=== PATIENT | female | born 1995 | race Caucasian/White ===

== ENCOUNTER 2018-12-07 16:59 | Emergency (ER) | payer OTHER ==
[2018-12-07 17:08] VITALS: TEMP 98.3
[2018-12-07] MEDS ORDERED: METOCLOPRAMIDE 5 MG/ML 2 ML VIAL IVP STA (17:34)
[2018-12-07] MEDS ORDERED: SODIUM CHLORIDE 0.9% 2,000 ML IV STA (17:34)
[2018-12-07 18:11] LABS: Basophils % (A) 0 %; Eosinophils # (A) 0.2 k/uL (0-0.7); Eosinophils % (A) 3 %; HGB 13.4 gm/dL (11.4-16.0); Lymphocytes # (A) 1.5 k/uL (1.0-4.8); Lymphocytes % (A) 24 %; MCHC 35.1 g/dL (31.0-37.0); MCV 82.6 fL (80.0-100.0); Mean Platelet Volume 7.5; Monocytes # (A) 0.4 k/uL (0-1.0); Monocytes % (A) 6 %; Neutrophils # (A) 3.9 k/uL (1.3-7.7); Neutrophils % (A) 64 %; Platelet Count 181 k/uL (150-450); RDW 12.7 % (11.5-15.5); WBC 6.1 k/uL (3.8-10.6)
[2018-12-07 18:14] LABS: ALT 46 U/L (9-52); AST 32 U/L (14-36); Albumin 4.2 g/dL (3.5-5.0); Alkaline Phosphatase 71 U/L (38-126); Amylase 100 U/L (30-110); Anion Gap 12 mmol/L; Appearance,Urine Cloudy (Clear); Bacteria,Urine Rare /hpf; Bilirubin,Urine Negative (Negative); Blood Urea Nitrogen 10 mg/dL (7-17); Blood,Urine Negative (Negative); Carbon Dioxide 25 mmol/L (22-30); Chloride 97 mmol/L (98-107); Color,Urine Yellow; Glucose 84 mg/dL (74-99); Glucose,Urine (UA) Negative (Negative); Ketones,Urine 4+ (Negative); Leukocyte Esterase,Urine Large (Negative); Lipase 100 U/L (23-300); Mucus,Urine Few /hpf; Nitrite,Urine Negative (Negative); Potassium 3.4 mmol/L (3.5-5.1); Protein,Urine 1+ (Negative); RBC,Urine 21 /hpf (0-5); Sodium 134 mmol/L (137-145); Specific Gravity,Urine 1.031 (1.001-1.035); Squamous Epithelial Cell,Urine 24 /hpf (0-4); Total Bilirubin 0.7 mg/dL (0.2-1.3); Total Protein 7.1 g/dL (6.3-8.2); WBC,Urine 68 /hpf (0-5)
[2018-12-07] MEDS ORDERED: ONDANSETRON 4 MG/2 ML VIAL IVP STA (18:35)
--- NOTE | 2018-12-07 19:56 | ED ---
General Adult HPI - General Chief complaint: Nausea/Vomiting/Diarrhea Stated complaint: dehydration Time Seen by Provider: 12/07/18 17:15 Source: patient, RN notes reviewed Mode of arrival: ambulatory Limitations: no limitations - History of Present Illness Initial comments: Patient is 12 weeks sent over from her primary care provider for a chi ef complaint of nausea and vomiting x 4 days. Patient states that she has been very nauseous and vomiting throughout her . States that this did start to feel better about a week ago. However on Tuesday she started to have some congestion and the nausea returned. States she has vomited multiple times per day, able to keep some water down. Patient is taking Reglan at home. Patient denies fevers or chills. Patient denies any abdominal pain. Patient denies any vaginal bleeding.Patient has no other complaints at this time including shortness of breath, chest pain, abdominal pain, nausea or vomiting, headache, or visual changes. - Related Data Home Medications Medication Instructions Recorded Confirmed diphenhydrAMINE HCL [Benadryl] 25 mg PO HS PRN 12/07/18 12/07/18 Allergies Allergy/AdvReac Type Severity Reaction Status Date / Time Tetanus Vaccines and Toxoid Allergy Swelling Verified 12/07/18 17:23 Review of Systems ROS Statement: Those systems with pertinent positive or pertinent negative responses have been documented in the HPI. ROS Other: All systems not noted in ROS Statement are negative. Past Medical History Past Medical History: No Reported History History of Any Multi-Drug Resistant Organisms: None Reported Additional Past Surgical History / Comment(s): breast biopsy Past Psychological History: ADD/ADHD, Anxiety, Bipolar, Depression, PTSD Smoking Status: Never smoker Past Alcohol Use History: None Reported Past Drug Use History: None Reported General Exam Limitations: no limitations General appearance: alert, in no apparent distress Head exam: Present: atraumatic, normocephalic, normal inspection Eye exam: Present: normal appearance, PERRL, EOMI. Absent: scleral icterus, conjunctival injection, periorbital swelling ENT exam: Present: normal exam, mucous membranes moist Neck exam: Present: normal inspection, full ROM. Absent: tenderness, meningismu s, lymphadenopathy Respiratory exam: Present: normal lung sounds bilaterally. Absent: respiratory distress, wheezes, rales, rhonchi, stridor Cardiovascular Exam: Present: regular rate, normal rhythm, normal heart sounds. Absent: systolic murmur, diastolic murmur, rubs, gallop, clicks GI/Abdominal exam: Present: soft, normal bowel sounds. Absent: distended, tenderness, guarding, rebound, rigid Neurological exam: Present: alert, oriented X3, CN II-XII intact Psychiatric exam: Present: normal affect, normal mood Course Vital Signs 12/07/18 17:04 Temperature 98.3 F Pulse Rate 101 H Respiratory 20 Rate Blood Pressure 107/76 O2 Sat by Pulse 97 Oximetry Medical Decision Making - Medical Decision Making 23-year-old female presents to the emergency department for a chief complaint of nausea and vomiting 4 days. Patient is 12 weeks . Patient has had issues with vomiting throughout her . CBC CMP unremarkable. Ketones are 4+. Patient was given 2 L of fluids. Patient does have a large leuk esterase of 68 white cells however there are 24 squamous cells. Because of this urine will be cultured and patient will follow up on these results. Patient given antiemetics, aware of risks associated with these. Patient is doing much better at this time. Patient is eating a turkey sandwich and tolerating by mouth intake. Patient will follow-up with primary care and return here if she has any worsening symptoms. - Lab Data Result diagrams: 12/07/18 18:00 12/07/18 18:00 Lab Results 12/07/18 12/07/18 12/07/18 Range/Units 18:00 18:00 18:00 WBC 6.1 (3.8-10.6) k/uL RBC 4.60 (3.80-5.40) m/uL Hgb 13.4 (11.4-16.0) gm/dL Hct 38.0 (34.0-46.0) % MCV 82.6 (80.0-100.0) fL MCH 29.0 (25.0-35.0) pg MCHC 35.1 (31.0-37.0) g/dL RDW 12.7 (11.5-15.5) % Plt Count 181 (150-450) k/uL Neutrophils % 64 % Lymphocytes % 24 % Monocytes % 6 % Eosinophils % 3 % Basophils % 0 % Neutrophils # 3.9 (1.3-7.7) k/uL Lymphocytes # 1.5 (1.0-4.8) k/uL Monocytes # 0.4 (0-1.0) k/uL Eosinophils # 0.2 (0-0.7) k/uL Basophils # 0.0 (0-0.2) k/uL Sodium 134 L (137-145) mmol/L Potassium 3.4 L (3.5-5.1) mmol/L Chloride 97 L (98-107) mmol/L Carbon Dioxide 25 (22-30) mmol/L Anion Gap 12 mmol/L BUN 10 (7-17) mg/dL Creatinine 0.42 L (0.52-1.04) mg/dL Est GFR (CKD-EPI)AfAm >90 (>60 ml/min/1.73 sqM) Est GFR (CKD-EPI)NonAf >90 (>60 ml/min/1.73 sqM) Glucose 84 (74-99) mg/dL Calcium 9.0 (8.4-10.2) mg/dL Total Bilirubin 0.7 (0.2-1.3) mg/dL AST 32 (14-36) U/L ALT 46 (9-52) U/L Alkaline Phosphatase 71 (38-126) U/L Total Protein 7.1 (6.3-8.2) g/dL Albumin 4.2 (3.5-5.0) g/dL Amylase 100 (30-110) U/L Lipase 100 (23-300) U/L Urine Color Yellow Urine Appearance Cloudy H (Clear) Urine pH 6.0 (5.0-8.0) Ur Specific [place] 1.031 (1.001-1.035) Urine Protein 1+ H (Negative) Urine Glucose (UA) Negative (Negative) Urine Ketones 4+ H (Negative) Urine Blood Negative (Negative) Urine Nitrite Negative (Negative) Urine Bilirubin Negative (Negative) Urine Urobilinogen 4.0 (<2.0) mg/dL Ur Leukocyte Esterase Large H (Negative) Urine RBC 21 H (0-5) /hpf Urine WBC 68 H (0-5) /hpf Ur Squamous Epith Cells 24 H (0-4) /hpf Urine Bacteria Rare H (None) /hpf Urine Mucus Few H (None) /hpf Disposition Clinical Impression: Hyperemesis gravidarum Disposition: HOME SELF-CARE Condition: Good Instructions (If sedation given, give patient instructions): Nausea and Vomiting in (ED), Hyperemesis Gravidarum (ED) Additional Instructions: Please follow up with primary care in 1-2 days. Please return here to the emergency department if you have any worsening symptoms. Is patient prescribed a controlled substance at d/c from ED?: No Referrals: Amirah Carrillo MD [Primary Care Provider] - 1-2 days Time of Disposition: 19:55
[2018-12-07 20:46] VITALS: BP 116/80; PULSE 73; RESP 16
== END 2018-12-07 20:46 | disposition home or self-care (01) ==
LOC: EC 16:59
DX: O21.0 Mild hyperemesis gravidarum (principal); O99.89 Other specified diseases and conditions complicating pregnancy, childbirth and the puerperium; R09.89 Other specified symptoms and signs involving the circulatory and respiratory systems; Z3A.12 12 weeks gestation of pregnancy; Z88.7 Allergy status to serum and vaccine
CPT/HCPCS: 99284; 96374; 96375; 36415; 80053; 82150; 83690; 85025; 81001; 87086; 96361 ×2; J2765; J2405

== ENCOUNTER 2018-12-11 22:21 | Emergency (ER) | payer OTHER ==
[2018-12-11] MEDS ORDERED: SODIUM CHLORIDE 0.9% 2,000 ML IV STA (22:54)
[2018-12-11] MEDS ORDERED: METOCLOPRAMIDE 5 MG/ML 2 ML VIAL IVP STA (22:55)
[2018-12-11] MEDS ORDERED: diphenhydrAMINE 50 MG/ML 1 ML VIAL IVP STA (22:56)
--- NOTE | 2018-12-11 22:59 | ED ---
General Adult HPI - General Chief complaint: Nausea/Vomiting/Diarrhea Stated complaint: 13 Weeks Dehydration Nausea Time Seen by Provider: 12/11/18 22:46 Source: patient, RN notes reviewed Mode of arrival: ambulatory Limitations: no limitations - History of Present Illness Initial comments: 23-year-old female currently 13 weeks presents to the emergency department for a chief complaint of nausea vomiting x 1 day. Patient states she has struggled with nausea and vomiting throughout her . States that this tends to come and go. Today she was seen here 4 days ago and had a complete resolution of symptoms for 3 days however last night started to have this nausea and vomiting again. Patient states she has not been able to keep an y food down. States she is concerned she is going to get dehydrated again so presented to the emergency department. Patient denies any abdominal pain or cramping. Patient denies any vaginal bleeding. Patient does have a confirmed IUP. Patient has no other complaints at this time including shortness of breath, chest pain, abdominal pain, headache, or visual changes. - Related Data Home Medications Medication Instructions Recorded Confirmed Metoclopramide [Reglan] 10 mg PO QID PRN 12/11/18 12/11/18 Ranitidine HCl 150 mg PO DAILY 12/11/18 12/11/18 Previous Rx's Medication Instructions Recorded Cephalexin [Keflex] 500 mg PO Q6HR 7 Days cap 12/12/18 Allergies Allergy/AdvReac Type Severity Reaction Status Date / Time Tetanus Vaccines and Toxoid Allergy Swelling Verified 12/11/18 22:45 Review of Systems ROS Statement: Those systems with pertinent positive or pertinent negative responses have been documented in the HPI. ROS Other: All systems not noted in ROS Statement are negative. Past Medical History Past Medical History: No Reported History History of Any Multi-Drug Resistant Organisms: None Reported Additional Past Surgical History / Comment(s): breast biopsy Past Psychological History: ADD/ADHD, Anxiety, Bipolar, Depression, PTSD Smoking Status: Never smoker Past Alcohol Use History: None Reported Past Drug Use History: None Reported General Exam Limitations: no limitations General appearance: alert, in no apparent distress (She is alert sitting up smiling, no distress,) Head exam: Present: atraumatic, normocephalic, normal inspection Eye exam: Present: normal appearance, PERRL, EOMI. Absent: scleral icterus, conjunctival injection, periorbital swelling ENT exam: Present: normal exam, mucous membranes moist Neck exam: Present: normal inspection, full ROM. Absent: tenderness, meningismus, lymphadenopathy Respiratory exam: Present: normal lung sounds bilaterally. Absent: respiratory distress, wheezes, rales, rhonchi, stridor Cardiovascular Exam: Present: regular rate, normal rhythm, normal heart sounds. Absent: systolic murmur, diastolic murmur, rubs, gallop, clicks GI/Abdominal exam: Present: soft, normal bowel sounds. Absent: distended, tenderness, guarding, rebound, rigid Neurological exam: Present: alert, oriented X3, CN II-XII intact Psychiatric exam: Present: normal affect, normal mood Course Vital Signs 12/11/18 12/11/18 22:35 23:32 Temperature 98.0 F 98.1 F Pulse Rate 96 91 Respiratory 20 16 Rate Blood Pressure 106/70 123/79 O2 Sat by Pulse 97 97 Oximetry Medical Decision Making - Medical Decision Making 23-year-old female currently 13 weeks presents for nausea and vomiting times one day. Patient states this comes and goes throughout her . States she has not been able to keep anything down today. CBC and CMP are unremarkable. Patient was given 2 L of fluids here in the emergency department. Patient was also given Reglan IV. States she is doing much better at this time. Patient is drinking burners and eating crackers here without difficulty. Urine does show large leukesterase with greater than 182 white blood cells and many bacteria. Patient had a negative culture 4 days ago however given increase in white blood cells she will be started on Keflex. Culture will be repeated. Gonorrhea and Chlamydia also added however patient denies vaginal discharge or abdominal pain. Patient will follow-up with [facility]ANCE [facility]NAGER in one to 2 days. She will return here visiting any worsening symptoms. - Lab Data Result diagrams: 12/11/18 23:20 12/11/18 23:20 Lab Results 12/11/18 12/11/18 12/11/18 Range/Units 23:16 23:20 23:20 WBC 5.0 (3.8-10.6) k/uL RBC 4.34 (3.80-5.40) m/uL Hgb 12.6 (11.4-16.0) gm/dL Hct 36.0 (34.0-46.0) % MCV 83.0 (80.0-100.0) fL MCH 29.1 (25.0-35.0) pg MCHC 35.1 (31.0-37.0) g/dL RDW 13.4 (11.5-15.5) % Plt Count 176 (150-450) k/uL Neutrophils % 62 % Lymphocytes % 31 % Monocytes % 3 % Eosinophils % 2 % Basophils % 0 % Neutrophils # 3.1 (1.3-7.7) k/uL Lymphocytes # 1.5 (1.0-4.8) k/uL Monocytes # 0.2 (0-1.0) k/uL Eosinophils # 0.1 (0-0.7) k/uL Basophils # 0.0 (0-0.2) k/uL Sodium 136 L (137-145) mmol/L Potassium 3.9 (3.5-5.1) mmol/L Chloride 107 (98-107) mmol/L Carbon Dioxide 22 (22-30) mmol/L Anion Gap 7 mmol/L BUN 5 L (7-17) mg/dL Creatinine 0.36 L (0.52-1.04) mg/dL Est GFR (CKD-EPI)AfAm >90 (>60 ml/min/1.73 sqM) Est GFR (CKD-EPI)NonAf >90 (>60 ml/min/1.73 sqM) Glucose 86 (74-99) mg/dL Calcium 8.7 (8.4-10.2) mg/dL Total Bilirubin 0.5 (0.2-1.3) mg/dL AST 20 (14-36) U/L ALT 32 (9-52) U/L Alkaline Phosphatase 59 (38-126) U/L Total Protein 6.1 L (6.3-8.2) g/dL Albumin 3.4 L (3.5-5.0) g/dL Amylase 80 (30-110) U/L Lipase 133 (23-300) U/L Urine Color Yellow Urine Appearance Turbid H (Clear) Urine pH 8.5 H (5.0-8.0) Ur Specific [place] 1.020 (1.001-1.035) Urine Protein 1+ H (Negative) Urine Glucose (UA) Negative (Negative) Urine Ketones 2+ H (Negative) Urine Blood Negative (Negative) Urine Nitrite Negative (Negative) Urine Bilirubin Negative (Negative) Urine Urobilinogen <2.0 (<2.0) mg/dL Ur Leukocyte Esterase Large H (Negative) Urine RBC 6 H (0-5) /hpf Urine WBC >182 H (0-5) /hpf Urine WBC Clumps Few H (None) /hpf Ur Squamous Epith Cells 14 H (0-4) /hpf Urine Bacteria Many H (None) /hpf Urine Mucus Many H (None) /hpf Disposition Clinical Impression: Nausea and vomiting in , Urinary tract infection Disposition: HOME SELF-CARE Condition: Good Instructions (If sedation given, give patient instructions): Nausea and Vomiting in (ED) Additional Instructions: Please take antibiotic as directed. Please follow up with [facility] in one to 2 days. If you're having any worsening symptoms return to the emergency department. Prescriptions: Cephalexin [Keflex] 500 mg PO Q6HR 7 Days cap Is patient prescribed a controlled substance at d/c from ED?: No Referrals: Amirah Carrillo MD [Primary Care Provider] - 1-2 days Time of Disposition: 00:10
[2018-12-11 23:36] LABS: Basophils % (A) 0 %; Eosinophils # (A) 0.1 k/uL (0-0.7); Eosinophils % (A) 2 %; HGB 12.6 gm/dL (11.4-16.0); Lymphocytes # (A) 1.5 k/uL (1.0-4.8); Lymphocytes % (A) 31 %; MCH 29.1 pg (25.0-35.0); MCHC 35.1 g/dL (31.0-37.0); Mean Platelet Volume 7.8; Monocytes # (A) 0.2 k/uL (0-1.0); Monocytes % (A) 3 %; Neutrophils # (A) 3.1 k/uL (1.3-7.7); Neutrophils % (A) 62 %; Platelet Count 176 k/uL (150-450); RBC 4.34 m/uL (3.80-5.40); RDW 13.4 % (11.5-15.5)
[2018-12-11 23:38] LABS: Appearance,Urine Turbid (Clear); Bacteria,Urine Many /hpf; Bilirubin,Urine Negative (Negative); Blood,Urine Negative (Negative); Color,Urine Yellow; Glucose,Urine (UA) Negative (Negative); Ketones,Urine 2+ (Negative); Leukocyte Esterase,Urine Large (Negative); Mucus,Urine Many /hpf; Nitrite,Urine Negative (Negative); PH, Urine 8.5 (5.0-8.0); Protein,Urine 1+ (Negative); RBC,Urine 6 /hpf (0-5); Squamous Epithelial Cell,Urine 14 /hpf (0-4); Urobilinogen,Urine <2.0 mg/dL (<2.0); WBC,Urine >182 /hpf (0-5)
[2018-12-11 23:44] LABS: ALT 32 U/L (9-52); AST 20 U/L (14-36); Albumin 3.4 g/dL (3.5-5.0); Alkaline Phosphatase 59 U/L (38-126); Amylase 80 U/L (30-110); Anion Gap 7 mmol/L; Blood Urea Nitrogen 5 mg/dL (7-17); Calcium 8.7 mg/dL (8.4-10.2); Carbon Dioxide 22 mmol/L (22-30); Chloride 107 mmol/L (98-107); Glucose 86 mg/dL (74-99); Lipase 133 U/L (23-300); Potassium 3.9 mmol/L (3.5-5.1); Sodium 136 mmol/L (137-145); Total Bilirubin 0.5 mg/dL (0.2-1.3); Total Protein 6.1 g/dL (6.3-8.2)
[2018-12-12] MEDS ORDERED: CEPHALEXIN 500MG STARTER PACK 4 CAP BTL PO STA (00:11)
[2018-12-12 00:36] VITALS: BP 123/84; PULSE 69; RESP 18; TEMP 98
== END 2018-12-12 00:35 | disposition home or self-care (01) ==
LOC: EC 22:21
DX: O23.41 Unspecified infection of urinary tract in pregnancy, first trimester (principal); Z3A.13 13 weeks gestation of pregnancy; O21.9 Vomiting of pregnancy, unspecified; Z79.899 Other long term (current) drug therapy; Z88.7 Allergy status to serum and vaccine
CPT/HCPCS: 36415; 80053; 82150; 83690; 85025; 81001; 99284; 96374; 96375; 96361; J1200; J2765; 87086; 87491; 87591

== ENCOUNTER 2018-12-13 07:13 | Emergency (ER) | payer OTHER ==
[2018-12-13 07:25] VITALS: RESP 18
[2018-12-13] MEDS ORDERED: METOCLOPRAMIDE 5 MG/ML 2 ML VIAL IVP STA (08:01)
[2018-12-13] MEDS ORDERED: SODIUM CHLORIDE 0.9% 2,000 ML IV STA (08:04)
[2018-12-13] MEDS ORDERED: cefTRIAXone IN SWFI 1,000 MG/10 ML SYRINGE IVP STA (08:06)
[2018-12-13 08:16] LABS: Basophils % (A) 0 %; Eosinophils # (A) 0.2 k/uL (0-0.7); Eosinophils % (A) 2 %; HCT 37.3 % (34.0-46.0); Lymphocytes # (A) 1.6 k/uL (1.0-4.8); Lymphocytes % (A) 24 %; MCH 28.7 pg (25.0-35.0); MCHC 34.8 g/dL (31.0-37.0); MCV 82.5 fL (80.0-100.0); Mean Platelet Volume 7.8; Monocytes # (A) 0.2 k/uL (0-1.0); Monocytes % (A) 3 %; Neutrophils # (A) 4.6 k/uL (1.3-7.7); Neutrophils % (A) 69 %; Platelet Count 197 k/uL (150-450); RBC 4.52 m/uL (3.80-5.40); RDW 13.6 % (11.5-15.5); WBC 6.7 k/uL (3.8-10.6)
[2018-12-13 08:20] LABS: ALT 42 U/L (9-52); AST 27 U/L (14-36); Alkaline Phosphatase 65 U/L (38-126); Anion Gap 10 mmol/L; Blood Urea Nitrogen 7 mg/dL (7-17); Calcium 9.2 mg/dL (8.4-10.2); Carbon Dioxide 22 mmol/L (22-30); Chloride 105 mmol/L (98-107); Glucose 89 mg/dL (74-99); Potassium 3.7 mmol/L (3.5-5.1); Sodium 137 mmol/L (137-145); Total Bilirubin 0.6 mg/dL (0.2-1.3); Total Protein 6.8 g/dL (6.3-8.2)
[2018-12-13 08:41] LABS: Appearance,Urine Cloudy (Clear); Bacteria,Urine Occasional /hpf; Bilirubin,Urine Negative (Negative); Blood,Urine Negative (Negative); Color,Urine Yellow; Glucose,Urine (UA) Negative (Negative); Ketones,Urine 4+ (Negative); Leukocyte Esterase,Urine Trace (Negative); Mucus,Urine Many /hpf; Nitrite,Urine Negative (Negative); Protein,Urine 1+ (Negative); Specific Gravity,Urine 1.027 (1.001-1.035); Squamous Epithelial Cell,Urine 18 /hpf (0-4); WBC,Urine 10 /hpf (0-5)
--- NOTE | 2018-12-13 08:52 | ED ---
General Adult HPI - General Chief complaint: Nausea/Vomiting/Diarrhea Stated complaint: 13 Weeks /Nausea Time Seen by Provider: 12/13/18 07:22 Source: patient Mode of arrival: ambulatory Limitations: no limitations - History of Present Illness Initial comments: Patient is a 23-year-old, 13 week female presented emergency department with a chief complaint of nausea vomiting. Patient states she was here 2 days ago for same issues. Patient states she was given fluids and Reglan and was able to keep down some food but started vomiting again when she got home. Patient's last UA in the emergency department was positive for UTI. She was sent home with Keflex but did not take it due to vomiting. Patient was sent home with Reglan but is unable to keep it down. Patient reports being diagnosed with hyperemesis gravidarum by her online marketing manager who advised her to emergency Department if vomiting persists for over 24 hours. Patient denies fever, abdominal pain, chest tightness or chest palpations. Patient denies any vaginal discharge or dysuria. - Related Data Home Medications Medication Instructions Recorded Confirmed Metoclopramide [Reglan] 10 mg PO QID PRN 12/11/18 12/13/18 Ranitidine HCl 150 mg PO DAILY 12/11/18 12/13/18 diphenhydrAMINE [Benadryl] 25 mg PO HS PRN 12/13/18 12/13/18 Previous Rx's Medication Instructions Recorded Cephalexin [Keflex] 500 mg PO Q6HR 7 Days cap 12/12/18 Metoclopramide [Reglan] 10 mg PO TID PRN #15 tab 12/13/18 Allergies Allergy/AdvReac Type Severity Reaction Status Date / Time Tetanus Vaccines and Toxoid Allergy Swelling Verified 12/13/18 07:44 Review of Systems ROS Statement: Those systems with pertinent positive or pertinent negative responses have been documented in the HPI. ROS Other: All systems not noted in ROS Statement are negative. Past Medical History Past Medical History: No Reported History History of Any Multi-Drug Resistant Organisms: None Reported Additional Past Surgical History / Comment(s): breast biopsy Past Psychological History: ADD/ADHD, Anxiety, Bipolar, Depression, PTSD Smoking Status: Never smoker Past Alcohol Use History: None Reported Past Drug Use History: None Reported General Exam Limitations: no limitations General appearance: alert, in no apparent distress Head exam: Present: atraumatic, normocephalic, normal inspection Eye exam: Present: normal appearance, PERRL, EOMI. Absent: scleral icterus, conjunctival injection ENT exam: Present: normal exam Neck exam: Present: normal inspection Respiratory exam: Present: normal lung sounds bilaterally. Absent: wheezes, rales, rhonchi, stridor Cardiovascular Exam: Present: regular rate, normal rhythm, normal heart sounds GI/Abdominal exam: Present: soft, tenderness (Midline suprapubic), normal bowel sounds. Absent: guarding, rebound, rigid Extremities exam: Present: normal inspection Back exam: Present: normal inspection, full ROM. Absent: tenderness, CVA tenderness (R), CVA tenderness (L), muscle spasm Neurological exam: Present: alert, oriented X3 Psychiatric exam: Present: normal affect, normal mood Skin exam: Present: warm Course Vital Signs 12/13/18 12/13/18 07:22 09:20 Temperature 98.4 F 98.5 F Pulse Rate 95 82 Respiratory 18 18 Rate Blood Pressure 118/85 116/66 O2 Sat by Pulse 96 99 Oximetry Medical Decision Making - Medical Decision Making Patient is a 23-year-old, 13-week0 female presenting to the emergency department for nausea and vomiting. Patient was given 3 L of saline for derehydration. Patient was given 1 g Rocephin for untreated UTI from her previous visit. Patient was given Reglan for nausea. Patient was given Prevacid for heartburn. Patient states that she feels better. Patient advised to follow with her OB, she has an appointment on December 20. Patient advised to return to emergency depar tment if symptoms worsen. Case discussed with the patient. - Lab Data Result diagrams: 12/13/18 07:31 12/13/18 07:31 Lab Results 12/13/18 12/13/18 12/13/18 Range/Units 07:31 07:31 08:15 WBC 6.7 (3.8-10.6) k/uL RBC 4.52 (3.80-5.40) m/uL Hgb 13.0 (11.4-16.0) gm/dL Hct 37.3 (34.0-46.0) % MCV 82.5 (80.0-100.0) fL MCH 28.7 (25.0-35.0) pg MCHC 34.8 (31.0-37.0) g/dL RDW 13.6 (11.5-15.5) % Plt Count 197 (150-450) k/uL Neutrophils % 69 % Lymphocytes % 24 % Monocytes % 3 % Eosinophils % 2 % Basophils % 0 % Neutrophils # 4.6 (1.3-7.7) k/uL Lymphocytes # 1.6 (1.0-4.8) k/uL Monocytes # 0.2 (0-1.0) k/uL Eosinophils # 0.2 (0-0.7) k/uL Basophils # 0.0 (0-0.2) k/uL Sodium 137 (137-145) mmol/L Potassium 3.7 (3.5-5.1) mmol/L Chloride 105 (98-107) mmol/L Carbon Dioxide 22 (22-30) mmol/L Anion Gap 10 mmol/L BUN 7 (7-17) mg/dL Creatinine 0.38 L (0.52-1.04) mg/dL Est GFR (CKD-EPI)AfAm >90 (>60 ml/min/1.73 sqM) Est GFR (CKD-EPI)NonAf >90 (>60 ml/min/1.73 sqM) Glucose 89 (74-99) mg/dL Calcium 9.2 (8.4-10.2) mg/dL Total Bilirubin 0.6 (0.2-1.3) mg/dL AST 27 (14-36) U/L ALT 42 (9-52) U/L Alkaline Phosphatase 65 (38-126) U/L Total Protein 6.8 (6.3-8.2) g/dL Albumin 4.0 (3.5-5.0) g/dL Urine Color Yellow Urine Appearance Cloudy H (Clear) Urine pH 7.0 (5.0-8.0) Ur Specific [place] 1.027 (1.001-1.035) Urine Protein 1+ H (Negative) Urine Glucose (UA) Negative (Negative) Urine Ketones 4+ H (Negative) Urine Blood Negative (Negative) Urine Nitrite Negative (Negative) Urine Bilirubin Negative (Negative) Urine Urobilinogen 2.0 (<2.0) mg/dL Ur Leukocyte Esterase Trace H (Negative) Urine WBC 10 H (0-5) /hpf Ur Squamous Epith Cells 18 H (0-4) /hpf Urine Bacteria Occasional H (None) /hpf Urine Mucus Many H (None) /hpf Disposition Clinical Impression: Nausea and vomiting in Disposition: HOME SELF-CARE Condition: Stable Additional Instructions: Please take Reglan as prescribed for nausea. Please follow up with online marketing manager. Return to emergency department if symptoms worsen. Prescriptions: Metoclopramide [Reglan] 10 mg PO TID PRN #15 tab PRN Reason: GERD Is patient prescribed a controlled substance at d/c from ED?: No Referrals: Amirah Carrillo MD [Primary Care Provider] - 1-2 days
[2018-12-13] MEDS ORDERED: FAMOTIDINE 20 MG/2 ML VIAL IV STA (08:53)
[2018-12-13] MEDS ORDERED: SODIUM CHLORIDE 0.9% 1,000 ML IV STA (09:25)
[2018-12-13 11:16] VITALS: BP 121/74; PULSE 90; TEMP 98.3
== END 2018-12-13 11:08 | disposition home or self-care (01) ==
LOC: EC 07:13
DX: O21.9 Vomiting of pregnancy, unspecified (principal); O23.41 Unspecified infection of urinary tract in pregnancy, first trimester; O99.281 Endocrine, nutritional and metabolic diseases complicating pregnancy, first trimester; E86.0 Dehydration; O99.89 Other specified diseases and conditions complicating pregnancy, childbirth and the puerperium; R19.7 Diarrhea, unspecified; Z3A.13 13 weeks gestation of pregnancy; Z98.890 Other specified postprocedural states; Z79.899 Other long term (current) drug therapy; Z88.7 Allergy status to serum and vaccine
CPT/HCPCS: 36415; 80053; 85025; 81001; 99284; 96374; 96375 ×2; 96361 ×2; J2765; J0696

== ENCOUNTER 2018-12-15 13:42 | Observation (INO) | payer BC, OTHER ==
[2018-12-15] MEDS ORDERED: SODIUM CHLORIDE 0.9% 500 ML 500 ML IV STA (14:22)
[2018-12-15] MEDS ORDERED: PYRIDOXINE 100 MG/ML 1 ML VIAL IVP STA (14:33)
--- NOTE | 2018-12-15 14:39 | ED ---
General Adult HPI - General Chief complaint: Nausea/Vomiting/Diarrhea Stated complaint: Dehydrated Time Seen by Provider: 12/15/18 14:10 Source: patient, RN notes reviewed, old records reviewed Mode of arrival: ambulatory Limitations: no limitations - History of Present Illness Initial comments: 23-year-old female patient approximately 13 weeks . By last nausea. Presents to ED with nausea and vomiting. Patient has had recurrent nausea and vomiting throughout the duration of her . Patient does have an appointment to see her [facility]UFACTURING WEAVER for this on 12/20/2018. Patient was seen in this facility approximately 2 days ago for the same problem, at that time patient was also treated for asymptomatic bacteriuria. Patient states that she does have some minor suprapubic waxing and waning pain. Denies any other areas of abdominal pain and vaginal bleeding. Patient has been taking the Keflex at home. History taking also revealed the patient had a very minor fall yesterday. Patient states that she was vomiting when she stood up she felt dizzy, patient states that she had a controlled dissent to the ground, and rolled on her side having a minor bump to her head. Patient denies a loss of consciousness denies any headache or changes in vision denies any pain in her neck. Patient denies any chest pain or difficulty breathing. Systemic: Pt denies fatigue, myalgia, fever/chills, rash. Pt denies weakness, night sweats, weight loss. Neuro: Pt denies headache, visual disturbances, syncope or pre-syncope. HEENT: Pt denies ocular discharge or irritation, otalgia, rhinorrhea, pharyngitis or notable lymphadenopathy. Cardiopulmonary: Pt denies chest pain, SOB, heart palpitations, dyspnea on exertion. Abdominal/GI: Pt denies diarrhea. : Pt denies dysuria, burning w/ urination, frequency/urgency. Denies new onset urinary or bowel incontinence. MSK: Pt denies myalgia, loss of strength or function in extremities. Neuro: Pt denies new onset weakness, paresthesias. - Related Data Home Medications Medication Instructions Recorded Confirmed Ranitidine HCl 150 mg PO DAILY 12/11/18 12/15/18 diphenhydrAMINE [Benadryl] 25 mg PO HS PRN 12/13/18 12/15/18 Allergies Allergy/AdvReac Type Severity Reaction Status Date / Time Tetanus Vaccines and Toxoid Allergy Swelling Verified 12/15/18 14:24 Milk Containing Products AdvReac UPSET Verified 12/15/18 14:24 [Dairy] STOMACH Review of Systems ROS Statement: Those systems with pertinent positive or pertinent negative responses have been documented in the HPI. ROS Other: All systems not noted in ROS Statement are negative. Past Medical History Past Medical History: No Reported History History of Any Multi-Drug Resistant Organisms: None Reported Additional Past Surgical History / Comment(s): breast biopsy Past Psychological History: ADD/ADHD, Anxiety, Bipolar, Depression, PTSD Smoking Status: Never smoker Past Alcohol Use History: None Reported Past Drug Use History: None Reported General Exam - General Exam Comments Initial Comments: Constitutional: NAD, AOX3, Pt has pleasant affect. HEENT: NC/AT, trachea midline, neck supple, no lymphadenopathy. Posterior pharynx non erythematous, without exudates. External ears appear normal, without discharge. Mucous membranes moist. Eyes PERRLA, EOM intact. There is no scleral icterus. No pallor noted. Cardiopulmonary: RRR, no murmurs, rubs or gallops, no JVD noted. Lungs CTAB in anterior and posterior reyna. No peripheral edema. Abdominal exam: Abdomen soft and non-distended. Very mild tenderness to palpation in suprapubic region, no other areas of abdominal tenderness. No guarding no rigidity, no ecchymosis. Bowel sounds active in LLQ. No hepatosplenomegaly. No ecchymosis Neuro: CN II-XII intact. No nuchal rigidity. MSK: No posterior calf tenderness bilaterally, homans sign negative bilaterally. Posterior tibialis and radial pulse +2 bilaterally. Sensation intact in upper and lower extremities. Full active ROM in upper and lower extremities, 5/5 stregnth. Limitations: no limitations Course Vital Signs 12/15/18 14:03 Temperature 98.4 F Pulse Rate 72 Respiratory 18 Rate Blood Pressure 107/72 O2 Sat by Pulse 98 Oximetry Medical Decision Making - Medical Decision Making 23-year-old female patient approximately 13 weeks . By last nausea. Presents to ED with nausea and vomiting. Patient has had recurrent nausea and vomiting throughout the duration of her . Patient does have an appo intment to see her [facility]UFA[facility]ING WE[facility]ER for this on 12/20/2018. Patient was seen in this facility approximately 2 days ago for the same problem, at that time patient was also treated for asymptomatic bacteriuria. Patient states that she does have some minor suprapubic waxing and waning pain. Denies any other areas of abdominal pain and vaginal bleeding. Patient has been taking the Keflex at home. History taking also revealed the patient had a very minor fall yesterday. Patient states that she was vomiting when she stood up she felt dizzy, patient states that she had a controlled dissent to the ground, and rolled on her side having a minor bump to her head. Patient denies a loss of consciousness denies any headache or changes in vision denies any pain in her neck. Patient denies any chest pain or difficulty breathing. Patient vital signs stable afebrile. Laboratory investigations are non-impressive CBC, CMP. UA displayed plus for ketones, 4 white blood cells. Physical exam displayed: Abdomen soft and non- distended. Very mild tenderness to palpation in suprapubic region, no other areas of abdominal tenderness. No guarding no rigidity, no ecchymosis. This likely secondary to urinary tract infection patient appears to be treated for. Shared decision making, patient does not wish to have any imaging done on her brain or her neck. Patient will be admitted for IV fluids and reevaluation. Case discussed with Dr. Ornelas. - Lab Data Result diagrams: 12/15/18 14:35 12/15/18 14:35 Lab Results 12/15/18 12/15/18 12/15/18 Range/Units 14:35 14:35 15:55 WBC 7.0 (3.8-10.6) k/uL RBC 4.64 (3.80-5.40) m/uL Hgb 13.3 (11.4-16.0) gm/dL Hct 39.4 (34.0-46.0) % MCV 84.8 (80.0-100.0) fL MCH 28.7 (25.0-35.0) pg MCHC 33.8 (31.0-37.0) g/dL RDW 13.1 (11.5-15.5) % Plt Count 187 (150-450) k/uL Neutrophils % 70 % Lymphocytes % 24 % Monocytes % 3 % Eosinophils % 1 % Basophils % 0 % Neutrophils # 4.9 (1.3-7.7) k/uL Lymphocytes # 1.7 (1.0-4.8) k/uL Monocytes # 0.2 (0-1.0) k/uL Eosinophils # 0.1 (0-0.7) k/uL Basophils # 0.0 (0-0.2) k/uL Sodium 138 (137-145) mmol/L Potassium 3.5 (3.5-5.1) mmol/L Chloride 105 (98-107) mmol/L Carbon Dioxide 20 L (22-30) mmol/L Anion Gap 13 mmol/L BUN 6 L (7-17) mg/dL Creatinine 0.42 L (0.52-1.04) mg/dL Est GFR (CKD-EPI)AfAm >90 (>60 ml/min/1.73 sqM) Est GFR (CKD-EPI)NonAf >90 (>60 ml/min/1.73 sqM) Glucose 83 (74-99) mg/dL Calcium 9.4 (8.4-10.2) mg/dL Total Bilirubin 0.7 (0.2-1.3) mg/dL AST 33 (14-36) U/L ALT 52 (9-52) U/L Alkaline Phosphatase 76 (38-126) U/L Total Protein 7.5 (6.3-8.2) g/dL Albumin 4.4 (3.5-5.0) g/dL Urine Color Yellow Urine Appearance Cloudy H (Clear) Urine pH 6.0 (5.0-8.0) Ur Specific [place] 1.033 (1.001-1.035) Urine Protein 2+ H (Negative) Urine Glucose (UA) Negative (Negative) Urine Ketones 4+ H (Negative) Urine Blood Negative (Negative) Urine Nitrite Negative (Negative) Urine Bilirubin Negative (Negative) Urine Urobilinogen 4.0 (<2.0) mg/dL Ur Leukocyte Esterase Negative (Negative) Urine RBC 2 (0-5) /hpf Urine WBC 4 (0-5) /hpf Ur Squamous Epith Cells 12 H (0-4) /hpf Hyaline Casts 7 H (0-2) /lpf Urine Mucus Occasional H (None) /hpf Disposition Clinical Impression: Dehydration, , Hyperemesis gravidarum Disposition: ADMITTED IP TO THIS HOSP Condition: Serious Is patient prescribed a controlled substance at d/c from ED?: No Referrals: Amirah Carrillo MD [Primary Care Provider] - 1-2 days
[2018-12-15 14:49] LABS: Basophils % (A) 0 %; Eosinophils # (A) 0.1 k/uL (0-0.7); Eosinophils % (A) 1 %; HCT 39.4 % (34.0-46.0); HGB 13.3 gm/dL (11.4-16.0); Lymphocytes # (A) 1.7 k/uL (1.0-4.8); Lymphocytes % (A) 24 %; MCH 28.7 pg (25.0-35.0); MCHC 33.8 g/dL (31.0-37.0); MCV 84.8 fL (80.0-100.0); Mean Platelet Volume 7.4; Monocytes # (A) 0.2 k/uL (0-1.0); Monocytes % (A) 3 %; Neutrophils # (A) 4.9 k/uL (1.3-7.7); Neutrophils % (A) 70 %; Platelet Count 187 k/uL (150-450); RBC 4.64 m/uL (3.80-5.40); RDW 13.1 % (11.5-15.5)
[2018-12-15 15:00] LABS: ALT 52 U/L (9-52); AST 33 U/L (14-36); Albumin 4.4 g/dL (3.5-5.0); Alkaline Phosphatase 76 U/L (38-126); Anion Gap 13 mmol/L; Blood Urea Nitrogen 6 mg/dL (7-17); Calcium 9.4 mg/dL (8.4-10.2); Carbon Dioxide 20 mmol/L (22-30); Chloride 105 mmol/L (98-107); Glucose 83 mg/dL (74-99); Potassium 3.5 mmol/L (3.5-5.1); Sodium 138 mmol/L (137-145); Total Bilirubin 0.7 mg/dL (0.2-1.3); Total Protein 7.5 g/dL (6.3-8.2)
[2018-12-15 16:07] LABS: Appearance,Urine Cloudy (Clear); Bilirubin,Urine Negative (Negative); Blood,Urine Negative (Negative); Color,Urine Yellow; Glucose,Urine (UA) Negative (Negative); Hyaline Casts,Urine 7 /lpf (0-2); Ketones,Urine 4+ (Negative); Leukocyte Esterase,Urine Negative (Negative); Mucus,Urine Occasional /hpf; Nitrite,Urine Negative (Negative); Protein,Urine 2+ (Negative); RBC,Urine 2 /hpf (0-5); Specific Gravity,Urine 1.033 (1.001-1.035); Squamous Epithelial Cell,Urine 12 /hpf (0-4); WBC,Urine 4 /hpf (0-5)
[2018-12-15] MEDS ORDERED: SODIUM CHLORIDE 0.9% 1,000 ML IV ONE (17:21)
[2018-12-15] MEDS ORDERED: PYRIDOXINE 100 MG/ML 1 ML VIAL IVP PRN (17:23)
[2018-12-15] MEDS ORDERED: NALOXONE 0.4 MG/ML 1 ML VIAL IV PRN (17:25)
[2018-12-15] MEDS ORDERED: ACETAMINOPHEN TAB 325 MG TAB PO PRN (17:25)
[2018-12-15] MEDS ORDERED: CALCIUM CARBONATE 500 MG CHEWABLE PO PRN (18:42)
[2018-12-15 20:12] VITALS: BMI 30.7
[2018-12-15] MEDS: SODIUM CHLORIDE 0.9% 1,000 ML IV SCH (20:15)
[2018-12-15] MEDS: CEPHALEXIN 500 MG CAP PO SCH (21:33)
[2018-12-16] MEDS: CALCIUM CARBONATE 500 MG CHEWABLE PO PRN ×2 (01:43→16:29)
[2018-12-16] MEDS: SODIUM CHLORIDE 0.9% 1,000 ML IV SCH ×3 (01:45→14:35)
[2018-12-16] MEDS: CEPHALEXIN 500 MG CAP PO SCH ×2 (07:05→20:16)
--- NOTE | 2018-12-16 07:41 | P.OBCN ---
History of Present Illness Consult date: 12/16/18 Reason for consult: other (Hyperemesis) Chief complaint: Nausea vomiting in . History of present illness: This patient is a pleasant 23-year-old 1 para 0 female estimated last menstrual period September 10 estimated date of confinement 06/17/2019 who presented to the emergency department apparently yesterday afternoon for the fourth time with complaints of nausea vomiting in . It appears patient was in the emergency department several times this last week for similar complaints and given IV hydration and anti-emetics however continue to return due to inability to keep her medications down. Patient has a new OB appointment scheduled with Dr. Waller this coming week. She has otherwise not had any other care. Patient states she did have an ultrasound done at [facility] but has had no other ultrasound done. Patient states this was planned. Review of Systems Constitutional: Reports as per HPI Gastrointestinal: Reports nausea, Reports vomiting Genitourinary: Reports Menstruation: Reports amenorrhea Past Medical History Past Medical History: Asthma History of Any Multi-Drug Resistant Organisms: None Reported Past Surgical History: No Surgical Hx Reported Additional Past Surgical History / Comment(s): breast biopsy Past Psychological History: ADD/ADHD, Anxiety, Bipolar, Depression, PTSD Smoking Status: Never smoker Past Alcohol Use History: None Reported Past Drug Use History: None Reported - Past Family History Father Additional Family Medical History / Comment(s): Chonic low sugars, dyslexia Mother Family Medical History: No Reported History Sister(s) Family Medical History: Mitral Valve Prolapse (MVP) Medications and Allergies Home Medications Medication Instructions Recorded Confirmed Type Ranitidine HCl 150 mg PO DAILY 12/11/18 12/15/18 History diphenhydrAMINE [Benadryl] 25 mg PO HS PRN 12/13/18 12/15/18 History Allergies Allergy/AdvReac Type Severity Reaction Status Date / Time Tetanus Vaccines and Toxoid Allergy Swelling Verified 12/15/18 14:24 Milk Containing Products AdvReac UPSET Verified 12/15/18 14:24 [Dairy] STOMACH Exam Vital Signs Temp Pulse Pulse Resp BP BP BP 12/16/18 05:17 98.5 F 82 18 103/66 12/15/18 23:55 101 H 18 12/15/18 21:20 97.8 F 101 H 18 100/65 12/15/18 18:09 98.1 F 78 18 118/73 12/15/18 14:03 98.4 F 72 18 107/72 Pulse Ox 12/16/18 05:17 99 12/15/18 23:55 12/15/18 21:20 97 12/15/18 18:09 98 12/15/18 14:03 98 Intake and Output 12/15/18 12/16/18 12/16/18 22:59 06:59 14:59 Intake Total 200 0 Output Total 400 Balance -200 0 Intake: Oral 200 0 Output: Emesis 400 Other: Voiding Method Toilet # Voids 1 2 # Bowel Movements 0 0 # Emeses 2 0 Results Result Diagrams: 12/15/18 14:35 12/15/18 14:35 Abnormal Lab Results - Last 24 Hours (Table) 12/15/18 12/15/18 Range/Units 14:35 15:55 Carbon Dioxide 20 L (22-30) mmol/L BUN 6 L (7-17) mg/dL Creatinine 0.42 L (0.52-1.04) mg/dL Urine Appearance Cloudy H (Clear) Urine Protein 2+ H (Negative) Urine Ketones 4+ H (Negative) Ur Squamous Epith Cells 12 H (0-4) /hpf Hyaline Casts 7 H (0-2) /lpf Urine Mucus Occasional H (None) /hpf Microbiology - Last 24 Hours (Table) 12/15/18 15:55 Urine Culture - Preliminary Urine,Clean Catch Assessment and Plan Assessment: This is a pleasant 23-year-old 1 para 0 female 13-6/7 weeks gestation who is admitted for persistent nausea vomiting and inability to keep anything down in . Patient is not currently on any antibiotics therefore the plan is to give her some IV antibiotics, check an OB ultrasound, and get a nut ritional consult. If patient does well then she'll most likely be able to go home tomorrow on the regimen of oral medications. Patient will see Dr. Waller as scheduled next week. (1) 14 weeks gestation of Current Visit: Yes Status: Acute Code(s): Z3A.14 - 14 WEEKS GESTATION OF SNOMED Code(s): 99764315 (2) Hyperemesis gravidarum Current Visit: Yes Status: Acute Code(s): O21.0 - MILD HYPEREMESIS GRAVIDARUM SNOMED Code(s): 72170976
[2018-12-16] MEDS: ONDANSETRON 4 MG/2 ML VIAL IVP PRN ×3 (08:04→20:16)
--- NOTE | 2018-12-16 08:12 | US ---
EXAMINATION TYPE: Transabdominal DATE OF EXAM: 12/16/2018 7:49 AM COMPARISON: NONE CLINICAL HISTORY: Hyperemesis. EXAM PERFORMED: Transabdominal (TA) EXAM MEASUREMENTS: GESTATIONAL AGE / DATING Physician Established: Not yet established Dates by LMP: (13 weeks/6 days) EDC: 06/17/2019 Dates by First Scan: No previous this is first scan Dates by Current Scan for: (13 weeks/6 days) EDC: 06/17/2019 MATERNAL ANATOMY Uterus: 12.1 x 6.5 x 9.1 cm Right Ovary: 4.6 x 3.5 x 3.4 cm Left Ovary: 3.3 x 2.2 x 3.1 cm Post CDS / Adnexa: wnl Presence of free fluid: none GESTATION / SURVEY CRL: 7.9 cm (13 weeks/6 days) Yolk Sac (normal less than 6mm): not seen Heart Rate: 158 bpm Rhythm: Normal IUP: Viable IUP Date of LMP: 09/10/2018 Beta HcG (if available): not available Viable IUP that correlates with LMP. IMPRESSION: VIABLE INTRAUTERINE GESTATION WITH A GESTATIONAL AGE OF 13 WEEKS 6 DAYS +/- 7 DAYS. ESTIMATED DATE OF CONFINEMENT BASED ON THIS EXAMINATION IS 07/14/2019.
[2018-12-16 22:34] VITALS: RESP 18
[2018-12-17] MEDS: SODIUM CHLORIDE 0.9% 1,000 ML IV SCH ×2 (05:26→09:41)
[2018-12-17 06:20] VITALS: BP 100/64; PULSE 61; TEMP 97.8
[2018-12-17] MEDS: CEPHALEXIN 500 MG CAP PO SCH (07:01)
--- NOTE | 2018-12-17 07:37 | P.PN ---
Progress Note - Text Progress Note Date: 12/17/18 Hospital day #2. Patient's 14 weeks . Ultrasound yesterday confirmed her estimated date of confinement and viability. Patient states that she did well overnight and did eat some soft foods. My recommendations are patient is stable for discharge home follow up with Dr. Waller on Tuesday as scheduled. Continue oral Zofran at home and this prescription has been sent in. Patient is cleared for discharge today from an obstetrical standpoint.
[2018-12-17 08:31] LABS: Basophils % (A) 0 %; Eosinophils # (A) 0.1 k/uL (0-0.7); Eosinophils % (A) 2 %; HCT 33.5 % (34.0-46.0); HGB 11.5 gm/dL (11.4-16.0); Lymphocytes # (A) 1.7 k/uL (1.0-4.8); Lymphocytes % (A) 36 %; MCH 28.9 pg (25.0-35.0); MCHC 34.3 g/dL (31.0-37.0); MCV 84.4 fL (80.0-100.0); Mean Platelet Volume 7.5; Monocytes # (A) 0.2 k/uL (0-1.0); Monocytes % (A) 3 %; Neutrophils # (A) 2.7 k/uL (1.3-7.7); Neutrophils % (A) 57 %; Platelet Count 169 k/uL (150-450); RBC 3.97 m/uL (3.80-5.40); RDW 13.3 % (11.5-15.5); WBC 4.7 k/uL (3.8-10.6)
[2018-12-17 08:40] LABS: Anion Gap 5 mmol/L; Blood Urea Nitrogen <2 mg/dL (7-17); Calcium 8.3 mg/dL (8.4-10.2); Carbon Dioxide 22 mmol/L (22-30); Chloride 109 mmol/L (98-107); Glucose 79 mg/dL (74-99); Potassium 3.8 mmol/L (3.5-5.1); Sodium 136 mmol/L (137-145)
[2018-12-17] MEDS: ONDANSETRON 4 MG/2 ML VIAL IVP PRN (09:41)
== END 2018-12-17 13:34 | disposition home or self-care (01) ==
LOC: EC 13:42 → 4MS4W 17:21
PROVIDERS: ADMIT Internal Medicine; ATTEND Internal Medicine
DX: O21.1 Hyperemesis gravidarum with metabolic disturbance (principal); E86.0 Dehydration; O99.512 Diseases of the respiratory system complicating pregnancy, second trimester; J45.909 Unspecified asthma, uncomplicated; O99.342 Other mental disorders complicating pregnancy, second trimester; F31.9 Bipolar disorder, unspecified; F41.9 Anxiety disorder, unspecified; F90.9 Attention-deficit hyperactivity disorder, unspecified type; F43.10 Post-traumatic stress disorder, unspecified; Z3A.14 14 weeks gestation of pregnancy
CPT/HCPCS: 96376 ×2; 96361 ×4; 96375; 96374; 99285; 36415; 80053; 80048; 85025 ×2; 81001; 87086; 76801; G0378 ×3; J3415; J2405 ×2

== ENCOUNTER 2019-01-01 18:56 | Emergency (ER) | payer BC, OTHER ==
[2019-01-01] MEDS ORDERED: METOCLOPRAMIDE 5 MG/ML 2 ML VIAL IVP STA (20:49)
[2019-01-01] MEDS ORDERED: diphenhydrAMINE 50 MG/ML 1 ML VIAL IVP STA (20:49)
[2019-01-01] MEDS ORDERED: SODIUM CHLORIDE 0.9% 1,000 ML IV STA (20:49)
[2019-01-01] MEDS ORDERED: DEXTROSE 5% IN WATER 1,000 ML IV SCH (21:00)
[2019-01-01 21:28] LABS: ALT 57 U/L (9-52); AST 45 U/L (14-36); Albumin 4.2 g/dL (3.5-5.0); Alkaline Phosphatase 84 U/L (38-126); Amylase 112 U/L (30-110); Anion Gap 9 mmol/L; Blood Urea Nitrogen 8 mg/dL (7-17); Calcium 9.5 mg/dL (8.4-10.2); Carbon Dioxide 24 mmol/L (22-30); Chloride 104 mmol/L (98-107); Glucose 79 mg/dL (74-99); Lipase 259 U/L (23-300); Potassium 3.9 mmol/L (3.5-5.1); Sodium 137 mmol/L (137-145); Total Bilirubin 0.7 mg/dL (0.2-1.3); Total Protein 7.2 g/dL (6.3-8.2)
[2019-01-01 21:29] LABS: Basophils % (A) 0 %; Eosinophils # (A) 0.1 k/uL (0-0.7); Eosinophils % (A) 2 %; HGB 13.6 gm/dL (11.4-16.0); Lymphocytes # (A) 2.6 k/uL (1.0-4.8); Lymphocytes % (A) 29 %; MCHC 33.9 g/dL (31.0-37.0); MCV 85.7 fL (80.0-100.0); Mean Platelet Volume 7.6; Monocytes # (A) 0.3 k/uL (0-1.0); Monocytes % (A) 3 %; Neutrophils # (A) 5.9 k/uL (1.3-7.7); Neutrophils % (A) 65 %; Platelet Count 211 k/uL (150-450); RBC 4.67 m/uL (3.80-5.40); RDW 14.9 % (11.5-15.5); WBC 9.1 k/uL (3.8-10.6)
[2019-01-01 21:33] LABS: Amorphous Sediment,Urine Rare /hpf; Appearance,Urine Cloudy (Clear); Bacteria,Urine Occasional /hpf; Bilirubin,Urine Negative (Negative); Blood,Urine Negative (Negative); Color,Urine Yellow; Glucose,Urine (UA) Negative (Negative); Ketones,Urine 4+ (Negative); Leukocyte Esterase,Urine Negative (Negative); Mucus,Urine Moderate /hpf; Nitrite,Urine Negative (Negative); Protein,Urine 1+ (Negative); RBC,Urine 1 /hpf (0-5); Specific Gravity,Urine 1.029 (1.001-1.035); Squamous Epithelial Cell,Urine 32 /hpf (0-4); WBC,Urine 1 /hpf (0-5)
[2019-01-01 21:36] VITALS: RESP 16
[2019-01-01] MEDS ORDERED: cefTRIAXone IN SWFI 1,000 MG/10 ML SYRINGE IVP STA (22:03)
--- NOTE | 2019-01-01 23:42 | ED ---
Nausea/Vomiting/Diarrhea HPI - General Source: patient Mode of arrival: ambulatory Limitations: no limitations <Remedios Cosby - Last Filed: 01/02/19 02:30> <Kirstie Resendez - Last Filed: 01/02/19 22:23> - General Chief complaint: Nausea/Vomiting/Diarrhea Stated complaint: 16 wks preg/nausea & vomiting Time Seen by Provider: 01/01/19 20:11 - History of Present Illness Initial comments: 23-year-old female patient who is 16 weeks presents to the emergency department today for evaluation of vomiting. Patient states that she has been having difficulty with nausea and vomiting during this . Patient states this episode started on Tuesday morning and she has been unable to keep down any food or fluids since. Patient states she is having some mild lower abdominal discomfort which she feels is related to muscle pain from dry heaving. She denies any abnormal vaginal bleeding or discharge. She denies fever or chills with this. States she is not having any diarrhea or constipation. Patient denies taking any medication for her symptoms today. Patient has established care with Dr. Waller. States that her has been going well so far other than the nausea and vomiting. She is . Patient denies any recent rash, shortness breath, chest pain, back pain, numbness, tingling, dizziness, weakness, hematuria, dysuria, urinary urgency, urinary frequency, headache, visual changes, or any other complaints. (Remedios Cosby) - Related Data Home Medications Medication Instructions Recorded Confirmed Ranitidine HCl 150 mg PO DAILY PRN 12/11/18 01/01/19 Ondansetron HCl [Zofran] 4 mg PO DAILY PRN 01/01/19 01/01/19 Previous Rx's Medication Instructions Recorded Cephalexin [Keflex] 500 mg PO Q6HR 3 Days #12 cap 01/01/19 Allergies Allergy/AdvReac Type Severity Reaction Status Date / Time Tetanus Vaccines and Toxoid Allergy Swelling Verified 01/01/19 19:47 Milk Containing Products AdvReac UPSET Verified 01/01/19 19:47 [Dairy] STOMACH Review of Systems ROS Other: All systems not noted in ROS Statement are negative. <Remedios Cosby - Last Filed: 01/02/19 02:30> ROS Other: All systems not noted in ROS Statement are negative. <Kirstie Resendez P - Last Filed: 01/02/19 22:23> ROS Statement: Those systems with pertinent positive or pertinent negative responses have been documented in the HPI. Past Medical History Past Medical History: Asthma History of Any Multi-Drug Resistant Organisms: None Reported Past Surgical History: No Surgical Hx Reported Additional Past Surgical History / Comment(s): breast biopsy Past Psychological History: ADD/ADHD, Anxiety, Bipolar, Depression, PTSD Smoking Status: Never smoker Past Alcohol Use History: None Reported Past Drug Use History: None Reported - Past Family History Father Additional Family Medical History / Comment(s): Chonic low sugars, dyslexia Mother Family Medical History: No Reported History Sister(s) Family Medical History: Mitral Valve Prolapse (MVP) <Remedios Cosby - Last Filed: 01/02/19 02:30> General Exam Limitations: no limitations General appearance: alert, in no apparent distress, other (Physical well- developed, well-nourished adult female patient in no acute distress. Vital signs upon presentation are temperature 98.2F, pulse 101, respirations 18, blood pressure 105/74, pulse ox 97% on room air.) Eye exam: Present: normal appearance, PERRL, EOMI. Absent: scleral icterus, conjunctival injection, periorbital swelling ENT exam: Present: normal exam, normal oropharynx, mucous membranes moist Respiratory exam: Present: normal lung sounds bilaterally. Absent: respiratory distress, wheezes, rales, rhonchi, stridor Cardiovascular Exam: Present: regular rate, normal rhythm, normal heart sounds. Absent: systolic murmur, diastolic murmur, rubs, gallop, clicks GI/Abdominal exam: Present: soft, normal bowel sounds. Absent: distended, tenderness, guarding, rebound, rigid Back exam: Present: normal inspection. Absent: CVA tenderness (R), CVA tenderness (L) Neurological exam: Present: alert, oriented X3, CN II-XII intact Psychiatric exam: Present: normal affect, normal mood Skin exam: Present: warm, dry, intact, normal color. Absent: rash <Remedios Cosby M - Last Filed: 01/02/19 02:30> Course Vital Signs 01/01/19 01/01/19 01/01/19 19:23 21:00 23:20 Temperature 98.2 F 98.5 F 97.8 F Pulse Rate 101 H 90 78 Respiratory 18 16 16 Rate Blood Pressure 105/74 104/65 111/70 O2 Sat by Pulse 97 98 99 Oximetry 01/01/19 23:57 Temperature 97.8 F Pulse Rate 78 Respiratory 16 Rate Blood Pressure 111/70 O2 Sat by Pulse 99 Oximetry Medical Decision Making - Lab Data Result diagrams: 01/01/19 21:15 01/01/19 21:15 <Remedios Cosby - Last Filed: 01/02/19 02:30> - Lab Data Result diagrams: 01/01/19 21:15 01/01/19 21:15 <Kirstie Resendez - Last Filed: 01/02/19 22:23> - Medical Decision Making 23-year-old male patient presents to the emergency department today for evaluation of nausea and vomiting. Physical examination revealed soft nontender abdomen. heart tones between 150 and 160. Patient denied vaginal bleeding or discharge. Urinalysis showed cloudy appearance with 1+ protein, 4+ ketones, 32 squamous epithelial cells, rare amorphous sediment, occasional bacteria, and moderate mucus. Patient was given IV fluids, IV nausea medication here in the department. Upon reevaluation patient does report complete improvement of symptoms. She is tolerating oral intake at bedside. She has a couple being discharged home at this time. We will treat for bacteriuria in . She is instructed to follow-up with [employer] for recheck as soon as possible. Return parameters were discussed in detail. She verbalizes understa nding and agrees with this plan. (Remedios Cosby) I was available for consultation in the emergency department. The history and physical exam were done by the Midlevel Provider. Medical decision making was done by the Midlevel Provider. I have reviewed the chart, however was not consulted specifically or made aware of this patient by the above midlevel provider and did not personally evaluate, interact with, or disposition this patient on the day of their visit Chart was dictated using [employer] dictation software. Attempts were made to correct any dictation errors however some typographical errors may persist. (Kirstie Resendez) - Lab Data Lab Results 01/01/19 01/01/19 01/01/19 Range/Units 21:15 21:15 21:15 WBC 9.1 (3.8-10.6) k/uL RBC 4.67 (3.80-5.40) m/uL Hgb 13.6 (11.4-16.0) gm/dL Hct 40.0 (34.0-46.0) % MCV 85.7 (80.0-100.0) fL MCH 29.0 (25.0-35.0) pg MCHC 33.9 (31.0-37.0) g/dL RDW 14.9 (11.5-15.5) % Plt Count 211 (150-450) k/uL Neutrophils % 65 % Lymphocytes % 29 % Monocytes % 3 % Eosinophils % 2 % Basophils % 0 % Neutrophils # 5.9 (1.3-7.7) k/uL Lymphocytes # 2.6 (1.0-4.8) k/uL Monocytes # 0.3 (0-1.0) k/uL Eosinophils # 0.1 (0-0.7) k/uL Basophils # 0.0 (0-0.2) k/uL Sodium 137 (137-145) mmol/L Potassium 3.9 (3.5-5.1) mmol/L Chloride 104 (98-107) mmol/L Carbon Dioxide 24 (22-30) mmol/L Anion Gap 9 mmol/L BUN 8 (7-17) mg/dL Creatinine 0.38 L (0.52-1.04) mg/dL Est GFR (CKD-EPI)AfAm >90 (>60 ml/min/1.73 sqM) Est GFR (CKD-EPI)NonAf >90 (>60 ml/min/1.73 sqM) Glucose 79 (74-99) mg/dL Calcium 9.5 (8.4-10.2) mg/dL Total Bilirubin 0.7 (0.2-1.3) mg/dL AST 45 H (14-36) U/L ALT 57 H (9-52) U/L Alkaline Phosphatase 84 (38-126) U/L Total Protein 7.2 (6.3-8.2) g/dL Albumin 4.2 (3.5-5.0) g/dL Amylase 112 H (30-110) U/L Lipase 259 (23-300) U/L Urine Color Yellow Urine Appearance Cloudy H (Clear) Urine pH 7.0 (5.0-8.0) Ur Specific [place] 1.029 (1.001-1.035) Urine Protein 1+ H (Negative) Urine Glucose (UA) Negative (Negative) Urine Ketones 4+ H (Negative) Urine Blood Negative (Negative) Urine Nitrite Negative (Negative) Urine Bilirubin Negative (Negative) Urine Urobilinogen 4.0 (<2.0) mg/dL Ur Leukocyte Esterase Negative (Negative) Urine RBC 1 (0-5) /hpf Urine WBC 1 (0-5) /hpf Ur Squamous Epith Cells 32 H (0-4) /hpf Amorphous Sediment Rare H (None) /hpf Urine Bacteria Occasional H (None) /hpf Urine Mucus Moderate H (None) /hpf Disposition Is patient prescribed a controlled substance at d/c from ED?: No Time of Disposition: 23:42 <Remedios Cosby - Last Filed: 01/02/19 02:30> <Kirstie Resendez P - Last Filed: 01/02/19 22:23> Clinical Impression: Hyperemesis, Bacteriuria during Disposition: HOME SELF-CARE Condition: Good Instructions (If sedation given, give patient instructions): Hyperemesis Gravidarum (ED) Additional Instructions: Start with clear liquid diet. Do small frequent meals. Take medications as directed. Complete antibiotic prescription in full to clear bacteria from urine. Follow-up with your [employer] [facility] for recheck as soon as possible. Return to the emergency department immediately for any new, worsening, or concerning symptoms. Prescriptions: Cephalexin [Keflex] 500 mg PO Q6HR 3 Days #12 cap Referrals: Amirah Carrillo MD [Primary Care Provider] - 1-2 days
[2019-01-01 23:57] VITALS: BP 111/70; PULSE 78; TEMP 97.8
== END 2019-01-01 23:57 | disposition home or self-care (01) ==
LOC: EC 18:56
DX: O21.9 Vomiting of pregnancy, unspecified (principal); O99.89 Other specified diseases and conditions complicating pregnancy, childbirth and the puerperium; R82.71 Bacteriuria; Z3A.16 16 weeks gestation of pregnancy; Z88.7 Allergy status to serum and vaccine; Z91.011 Allergy to milk products
CPT/HCPCS: 36415; 80053; 82150; 83690; 85025; 81001; 99284; 96374; 96375 ×2; 96361 ×2; J1200; J2765; J0696

== ENCOUNTER 2019-01-10 07:16 | Emergency (ER) | payer BC, OTHER ==
[2019-01-10] MEDS ORDERED: SODIUM CHLORIDE 0.9% 1,000 ML IV STA ×2 (07:39→09:30)
[2019-01-10] MEDS ORDERED: METOCLOPRAMIDE 5 MG/ML 2 ML VIAL IVP STA (07:39)
--- NOTE | 2019-01-10 07:50 | ED ---
General Adult HPI - General Chief complaint: Nausea/Vomiting/Diarrhea Stated complaint: vomiting, poss dehydration Time Seen by Provider: 01/10/19 07:37 Source: patient Mode of arrival: ambulatory Limitations: no limitations - History of Present Illness Initial comments: Dictation was produced using [employer] dictation software. please excuse any grammatical, word or spelling errors. Chief Complaint: 23-year-old female who has past medical history of hyperemesis during presents with nausea vomiting. History of Present Illness: Vital female over the last 3-4 days she's been having worsening nausea and vomiting. Patient reports that this is her first . She's had 6-7 other episodes going to the emergency department for -induced nausea and vomiting. She's been admitted couple times. Serjio nt reports that her emesis is nonbilious not bloody. Denies any diarrhea. Patient states she's having poor food intolerance. Patient's PATTERN FITTER is Dr. Waller. Denies any constitutional symptoms. No urinary symptoms. The ROS documented in this emergency department record has been reviewed and confirmed by me. Those systems with pertinent positive or negative responses have been documented in the HPI. All other systems are other negative and/or noncontributory. PHYSICAL EXAM: General Impression: Alert and oriented x3, not in acute distress HEENT: Normocephalic atraumatic, extra-ocular movements intact, pupils equal and reactive to light bilaterally, mucous membranes moist. Cardiovascular: Heart regular rate and rhythm, S1&S2 audible, no murmurs, rubs or gallops Chest: Lungs clear to auscultation bilaterally, no rhonchi, no wheeze, no rales Abdomen: Bowel sounds present, abdomen soft, non-tender, non-distended, no organomegaly Musculoskeletal: Pulses present and equal in all extremities, no peripheral edema Motor: no focal deficits noted Neurological: CN II-XII grossly intact, no focal motor or sensory deficits noted Skin: Intact with no visualized rashes Psych: Normal affect and mood ED course: 23-year-old female with -induced nausea and vomiting. Patient's well-appearing on physical examination. All signs upon arrival shows heart rate of 101, worse vital signs within acceptable limits. Laboratory evaluation was obtained. CBC, metabolic panel is unremarkable. Urinalysis obtained with 4+ ketones. No signs of urinary tract infection. Patient is given 2 L of intravenous fluids. Patient is reevaluated after Reglan administration. She reports that Reglan didn't work. Patient given Zofran and observed in emergency department for several minutes longer with improvement of symptoms. Patient now tolerating by mouth. Patient agreeable for discharge. Patient prescription for diclegis. Patient told to follow-up with PATTERN FITTER. Call was made out to Dr. Waller was aware of patient and her symptoms and her visit to the emergency department. Patient told to follow-up with Dr. Waller as soon as possible. Return parameters discussed. - Related Data Previous Rx's Medication Instructions Recorded Doxylamine/Pyridoxine HCl (B6) 1 each PO Q6H PRN #24 tablet. 01/10/19 [Diclegis Dr 10-10 mg Tablet] Allergies Allergy/AdvReac Type Severity Reaction Status Date / Time Tetanus Vaccines and Toxoid Allergy Swelling Verified 01/10/19 07:26 Milk Containing Products AdvReac UPSET Verified 01/10/19 07:26 [Dairy] STOMACH Review of Systems ROS Statement: Those systems with pertinent positive or pertinent negative responses have been documented in the HPI. ROS Other: All systems not noted in ROS Statement are negative. Past Medical History Past Medical History: Asthma History of Any Multi-Drug Resistant Organisms: None Reported Past Surgical History: No Surgical Hx Reported Additional Past Surgical History / Comment(s): breast biopsy Past Psychological History: ADD/ADHD, Anxiety, Bipolar, Depression, PTSD Smoking Status: Never smoker Past Alcohol Use History: None Reported Past Drug Use History: None Reported - Past Family History Father Additional Family Medical History / Comment(s): Chonic low sugars, dyslexia Mother Family Medical History: No Reported History Sister(s) Family Medical History: Mitral Valve Prolapse (MVP) General Exam Limitations: no limitations Course Vital Signs 01/10/19 07:19 Temperature 98.8 F Pulse Rate 101 H Respiratory 18 Rate Blood Pressure 109/69 O2 Sat by Pulse 98 Oximetry Medical Decision Making - Lab Data Result diagrams: 01/10/19 07:53 01/10/19 07:53 Lab Results 01/10/19 01/10/19 01/10/19 Range/Units 07:53 07:53 07:53 WBC 8.1 (3.8-10.6) k/uL RBC 4.44 (3.80-5.40) m/uL Hgb 12.9 (11.4-16.0) gm/dL Hct 37.5 (34.0-46.0) % MCV 84.5 (80.0-100.0) fL MCH 28.9 (25.0-35.0) pg MCHC 34.3 (31.0-37.0) g/dL RDW 14.8 (11.5-15.5) % Plt Count 199 (150-450) k/uL Neutrophils % 76 % Lymphocytes % 20 % Monocytes % 3 % Eosinophils % 1 % Basophils % 0 % Neutrophils # 6.1 (1.3-7.7) k/uL Lymphocytes # 1.6 (1.0-4.8) k/uL Monocytes # 0.2 (0-1.0) k/uL Eosinophils # 0.1 (0-0.7) k/uL Basophils # 0.0 (0-0.2) k/uL Sodium 139 (137-145) mmol/L Potassium 4.0 (3.5-5.1) mmol/L Chloride 105 (98-107) mmol/L Carbon Dioxide 24 (22-30) mmol/L Anion Gap 10 mmol/L BUN 9 (7-17) mg/dL Creatinine 0.42 L (0.52-1.04) mg/dL Est GFR (CKD-EPI)AfAm >90 (>60 ml/min/1.73 sqM) Est GFR (CKD-EPI)NonAf >90 (>60 ml/min/1.73 sqM) Glucose 92 (74-99) mg/dL Calcium 9.4 (8.4-10.2) mg/dL Magnesium 1.9 (1.6-2.3) mg/dL Urine Color Yellow Urine Appearance Cloudy H (Clear) Urine pH 6.5 (5.0-8.0) Ur Specific Minerv[place] 1.031 (1.001-1.035) Urine Protein 1+ H (Negative) Urine Glucose (UA) Negative (Negative) Urine Ketones 4+ H (Negative) Urine Blood Negative (Negative) Urine Nitrite Negative (Negative) Urine Bilirubin Negative (Negative) Urine Urobilinogen 3.0 (<2.0) mg/dL Ur Leukocyte Esterase Negative (Negative) Urine WBC 2 (0-5) /hpf Ur Squamous Epith Cells 7 H (0-4) /hpf Urine Mucus Many H (None) /hpf Disposition Clinical Impression: Nausea/vomiting in Disposition: HOME SELF-CARE Condition: Good Instructions (If sedation given, give patient instructions): Acute Nausea and Vomiting (ED) Prescriptions: Doxylamine/Pyridoxine HCl (B6) [Kayli Bowser 10-10 mg Tablet] 1 each PO Q6H PRN #24 tablet. PRN Reason: Nausea Is patient prescribed a controlled substance at d/c from ED?: No Referrals: Korin Waller DO [Doctor of Osteopathic Medicine] - 1-2 days Time of Disposition: 10:38
[2019-01-10 08:21] LABS: Basophils % (A) 0 %; Eosinophils # (A) 0.1 k/uL (0-0.7); Eosinophils % (A) 1 %; HCT 37.5 % (34.0-46.0); HGB 12.9 gm/dL (11.4-16.0); Lymphocytes # (A) 1.6 k/uL (1.0-4.8); Lymphocytes % (A) 20 %; MCH 28.9 pg (25.0-35.0); MCHC 34.3 g/dL (31.0-37.0); MCV 84.5 fL (80.0-100.0); Mean Platelet Volume 7.8; Monocytes # (A) 0.2 k/uL (0-1.0); Monocytes % (A) 3 %; Neutrophils # (A) 6.1 k/uL (1.3-7.7); Neutrophils % (A) 76 %; Platelet Count 199 k/uL (150-450); RBC 4.44 m/uL (3.80-5.40); RDW 14.8 % (11.5-15.5); WBC 8.1 k/uL (3.8-10.6)
[2019-01-10 08:30] LABS: Appearance,Urine Cloudy (Clear); Bilirubin,Urine Negative (Negative); Blood,Urine Negative (Negative); Color,Urine Yellow; Glucose,Urine (UA) Negative (Negative); Ketones,Urine 4+ (Negative); Leukocyte Esterase,Urine Negative (Negative); Mucus,Urine Many /hpf; Nitrite,Urine Negative (Negative); PH, Urine 6.5 (5.0-8.0); Protein,Urine 1+ (Negative); Specific Gravity,Urine 1.031 (1.001-1.035); Squamous Epithelial Cell,Urine 7 /hpf (0-4); WBC,Urine 2 /hpf (0-5)
[2019-01-10 08:33] LABS: Anion Gap 10 mmol/L; Blood Urea Nitrogen 9 mg/dL (7-17); Calcium 9.4 mg/dL (8.4-10.2); Carbon Dioxide 24 mmol/L (22-30); Chloride 105 mmol/L (98-107); Glucose 92 mg/dL (74-99); Magnesium 1.9 mg/dL (1.6-2.3); Sodium 139 mmol/L (137-145)
[2019-01-10] MEDS ORDERED: ONDANSETRON 4 MG/2 ML VIAL IVP STA (09:30)
[2019-01-10 11:02] VITALS: BP 113/71; PULSE 92; RESP 19; TEMP 98.2
== END 2019-01-10 11:02 | disposition home or self-care (01) ==
LOC: EC 07:16
DX: O21.9 Vomiting of pregnancy, unspecified (principal); Z3A.00 Weeks of gestation of pregnancy not specified; Z91.011 Allergy to milk products; Z88.7 Allergy status to serum and vaccine
CPT/HCPCS: 36415; 80048; 83735; 85025; 81001; 87086; 99284; 96374; 96375; 96361 ×2; J2765; J2405

== ENCOUNTER 2019-02-21 07:24 | Outpatient (CLI) | payer BC, OTHER ==
[2019-02-21] MEDS: LACTATED RINGERS 1,000 ML IV SCH ×2 (08:10→08:53)
[2019-02-21 08:17] LABS: Appearance,Urine Cloudy (Clear); Bacteria,Urine Rare /hpf; Bilirubin,Urine 1+ (Negative); Blood,Urine Negative (Negative); Color,Urine Dark Yellow; Glucose,Urine (UA) Negative (Negative); Ketones,Urine 4+ (Negative); Leukocyte Esterase,Urine Trace (Negative); Mucus,Urine Many /hpf; Nitrite,Urine Negative (Negative); Protein,Urine 2+ (Negative); RBC,Urine 1 /hpf (0-5); Squamous Epithelial Cell,Urine 26 /hpf (0-4); WBC,Urine 5 /hpf (0-5)
[2019-02-21 08:21] LABS: Basophils % (A) 0 %; Eosinophils # (A) 0.1 k/uL (0-0.7); Eosinophils % (A) 1 %; HCT 37.8 % (34.0-46.0); HGB 12.7 gm/dL (11.4-16.0); Lymphocytes # (A) 1.7 k/uL (1.0-4.8); Lymphocytes % (A) 19 %; MCH 29.1 pg (25.0-35.0); MCHC 33.5 g/dL (31.0-37.0); MCV 86.8 fL (80.0-100.0); Mean Platelet Volume 7.3; Monocytes # (A) 0.3 k/uL (0-1.0); Monocytes % (A) 3 %; Neutrophils # (A) 6.8 k/uL (1.3-7.7); Neutrophils % (A) 76 %; Platelet Count 241 k/uL (150-450); RBC 4.35 m/uL (3.80-5.40); RDW 13.6 % (11.5-15.5); WBC 8.9 k/uL (3.8-10.6)
[2019-02-21 08:26] VITALS: RESP 16; TEMP 97.2
[2019-02-21 08:31] LABS: ALT 35 U/L (9-52); AST 38 U/L (14-36); African American GFR (CKD) >90 (>60 ml/min/1.73 sqM); Albumin 4.3 g/dL (3.5-5.0); Alkaline Phosphatase 94 U/L (38-126); Anion Gap 12 mmol/L; Blood Urea Nitrogen 9 mg/dL (7-17); Calcium 9.3 mg/dL (8.4-10.2); Carbon Dioxide 24 mmol/L (22-30); Chloride 103 mmol/L (98-107); Glucose 96 mg/dL (74-99); Potassium 3.7 mmol/L (3.5-5.1); Sodium 139 mmol/L (137-145); Total Bilirubin 0.7 mg/dL (0.2-1.3); Total Protein 7.2 g/dL (6.3-8.2)
[2019-02-21] MEDS ORDERED: LACTATED RINGERS 1,000 ML IV SCH (09:00)
[2019-02-21] MEDS ORDERED: ONDANSETRON 4 MG/2 ML VIAL IVP STA (09:09)
[2019-02-21 09:44] VITALS: BP 108/58; PULSE 85
--- NOTE | 2019-02-21 12:09 | P.MSEPDOC ---
Presenting Problems - Arrival Data Date of Arrival on Unit: 02/21/19 Time of Arrival on Unit: 07:24 Mode of Transport: Ambulatory - Complaint OB-Reason for Admission/Chief Complaint: Acute Nausea/Vomiting Medical History - Information : 1 Para: 0 Term: 0 : 0 Abortions: Spontaneous or Elective: 0 Number of Living Children: 0 - Gestational Age Gestational Age by JOSE MARTIN (wks/days): 23 Weeks and 3 Days Review of Systems - Review of Systems Constitutional: No problems Breast: No problems ENT: No problems Cardiovascular: No problems Respiratory: No problems Gastrointestinal: No problems Genitourinary: No problems Musculoskeletal: No problems Neurological: No problems Skin: No problems Vital Signs - Temperature Temperature: 97.2 F Temperature Source: Temporal Artery Scan - Pulse Right Brachial Pulse Rate: 85 Pulse Assessment Method: Automatic Cuff - Respirations Respiratory Rate: 16 Oxygen Delivery Method: Room Air O2 Sat by Pulse Oximetry: 96 - Blood Pressure Right Arm Blood Pressure: 108/58 Blood Pressure Mean: 74 Blood Pressure Source: Automatic Cuff Medical Screen Scoring (Pre) - Cervical Exam Dilation: Exam Deferred Effacement: Exam Deferred Membranes: Intact - Uterine Contractions Frequency: N/A Duration: N/A Intensity: N/A - Maternal Vital Signs Maternal Temperature: N/A Maternal Blood Pressure: N/A Signs of Preeclampsia: Nausea/Vomiting = 1 Maternal Respirations: N/A - Maternal Trauma Maternal Trauma: N/A - Assessment - Baby A Baseline FHR: 135 Heart Rate - NICHD Category: Category I (Normal) = 0 NST: Reactive Position: N/A Station: N/A - Total Score - Baby A Total Score - Baby A: 1 - Total Score - Baby B Total Score - Baby B: 1 - Total Score - Baby C Total Score - Baby C: 1 - Level of Risk - Baby A Level of Risk - Baby A: Low (0-5) - Level of Risk - Baby B Level of Risk - Baby B: Low (0-5) - Level of Risk - Baby C Level of Risk - Baby C: Low (0-5) Physician Notification (Pre) - Physician Notified Physician Notified Date: 02/21/19 Physician Notified Time: 07:46 Physician/Practitioner Notifed:: Dr. Galicia Spoke With: Dr. Galicia New Order Received: Yes - Notification Comment Comment: Dr. Galicia given report on pt in tr. Pt vs wnl. fht dopplered 135-155 bpm. Pt. c/o of n/v since tuesday night. Orders recieved to start iv, collect and send CBC,. Comprehensive metabolic panel, and UA. To administer 1L of LR. To call with results Medical Screen Scoring (Post) - Cervical Exam Dilation: Exam Deferred Effacement: Exam Deferred Membranes: Intact - Uterine Contractions Frequency: N/A Duration: N/A Intensity: N/A - Maternal Vital Signs Maternal Temperature: N/A Maternal Blood Pressure: N/A Signs of Preeclampsia: N/A Maternal Respirations: N/A - Pain Assessment Pain Scale Used: Numeric (1 - 10) Pain Intensity: 0 - Maternal Trauma Maternal Trauma: N/A - Assessment - Baby A Heart Rate: 135 Heart Rate - NICHD Category: Category I (Normal) = 0 NST: Reactive Position: N/A Station: N/A - Total Score Total Score - Baby A: 0 Total Score - Baby B: 0 Total Score - Baby C: 0 - Post Treatment Level of Risk Post Treatment Level of Risk - Baby A: Low (0-5) Post Treatment Level of Risk - Baby B: Low (0-5) Post Treatment Level of Risk - Baby C: Low (0-5) Physician Notification (Post) - Physician Notified Physician Notified Date: 02/21/19 Physician Notified Time: 09:11 Physician/Practitioner Notified:: Dr. Waller Spoke With: Dr. Waller New Order Received: Yes - Notification Comment Comment: Dr. Waller called and given pt update. Pt threw up again and has been started on. second Liter of LR. 4+ Ketones in UA. Orders recieved to administer zofran 4mg and pt. may go home. Disposition - Disposition Discharge Date: 02/21/19 Discharge Time: 09:41 I agree with the RN Medical Screening Exam: Yes Risk & Benefit of care provided described in d/c instruction: Yes Diagnosis: VOMITING OF , UNSPECIFIED
== END 2019-02-21 09:41 | disposition home or self-care (01) ==
LOC: FBPOP 07:24
PROVIDERS: ATTEND Obstetrics & Gynecology
DX: O21.2 Late vomiting of pregnancy (principal); Z3A.23 23 weeks gestation of pregnancy
CPT/HCPCS: 99214; 96360; 96361; 96375; 80053; 85025; 81001; 87086; J2405

== ENCOUNTER 2019-04-22 21:35 | Outpatient (CLI) | payer OTHER ==
[2019-04-22 22:04] LABS: Appearance,Urine Cloudy (Clear); Bacteria,Urine Occasional /hpf; Bilirubin,Urine Negative (Negative); Blood,Urine Negative (Negative); Color,Urine Yellow; Glucose,Urine (UA) Negative (Negative); Ketones,Urine Negative (Negative); Leukocyte Esterase,Urine Small (Negative); Mucus,Urine Occasional /hpf; Nitrite,Urine Negative (Negative); Protein,Urine 1+ (Negative); RBC,Urine 2 /hpf (0-5); Specific Gravity,Urine 1.025 (1.001-1.035); Squamous Epithelial Cell,Urine 46 /hpf (0-4); Urobilinogen,Urine <2.0 mg/dL (<2.0); WBC,Urine 2 /hpf (0-5)
[2019-04-22 22:28] VITALS: BP 114/58; PULSE 82; RESP 16; TEMP 97.7
--- NOTE | 2019-04-23 08:20 | P.MSEPDOC ---
Presenting Problems - Arrival Data Date of Arrival on Unit: 04/22/19 Time of Arrival on Unit: 21:35 Mode of Transport: Ambulatory - Complaint OB-Reason for Admission/Chief Complaint: Headache Medical History - Information : 1 Para: 0 Term: 0 : 0 Abortions: Spontaneous or Elective: 0 Number of Living Children: 0 - Gestational Age Gestational Age by JOSE MARTIN (wks/days): 32 Weeks and 0 Days Review of Systems - Review of Systems Constitutional: No problems Breast: No problems ENT: No problems Cardiovascular: No problems Respiratory: No problems Gastrointestinal: No problems Genitourinary: No problems Musculoskeletal: No problems Neurological: No problems Skin: No problems Vital Signs - Temperature Temperature: 97.7 F Temperature Source: Oral - Pulse Right Brachial Pulse Rate: 82 Pulse Assessment Method: Automatic Cuff - Respirations Respiratory Rate: 16 Oxygen Delivery Method: Room Air O2 Sat by Pulse Oximetry: 97 - Blood Pressure Right Arm Blood Pressure: 114/58 Blood Pressure Mean: 76 Blood Pressure Source: Automatic Cuff Medical Screen Scoring (Pre) - Cervical Exam Dilation: Exam Deferred Effacement: Exam Deferred Membranes: Intact - Uterine Contractions Frequency: N/A - Maternal Vital Signs Maternal Temperature: N/A Maternal Blood Pressure: N/A Signs of Preeclampsia: Headache = 1 Maternal Respirations: N/A - Maternal Trauma Maternal Trauma: N/A - Assessment - Baby A Baseline FHR: 135 Heart Rate - NICHD Category: Category I (Normal) = 0 NST: Reactive Position: N/A Station: N/A - Total Score - Baby A Total Score - Baby A: 1 - Total Score - Baby B Total Score - Baby B: 1 - Total Score - Baby C Total Score - Baby C: 1 - Level of Risk - Baby A Level of Risk - Baby A: Low (0-5) - Level of Risk - Baby B Level of Risk - Baby B: Low (0-5) - Level of Risk - Baby C Level of Risk - Baby C: Low (0-5) Physician Notification (Pre) - Physician Notified Physician Notified Date: 04/22/19 Physician Notified Time: 22:13 Physician/Practitioner Notifed:: Dr. Waller Spoke With: Dr. Waller New Order Received: Yes - Notification Comment Comment: Dr. Waller given report on pt in tr. Pt c/o. VS WNL. Reactive NST. UA results. given. Orders received to discharge pt to ER for evaulation r/t cracked tooth. Disposition - Disposition OB Disposition: Transfer to other dept./facility Transferred to:: ER Discharge Date: 04/22/19 Discharge Time: 22:20 I agree with the RN Medical Screening Exam: Yes Risk & Benefit of care provided described in d/c instruction: Yes Diagnosis: HEADACHE
== END 2019-04-22 22:20 | disposition home or self-care (01) ==
LOC: FBPOP 21:35
PROVIDERS: ATTEND Obstetrics & Gynecology
DX: O99.89 Other specified diseases and conditions complicating pregnancy, childbirth and the puerperium (principal); R51 Headache; Z3A.32 32 weeks gestation of pregnancy
CPT/HCPCS: 59025; 81001; 99213

== ENCOUNTER 2019-04-22 22:31 | Emergency (ER) | payer OTHER ==
[2019-04-22 22:36] VITALS: BP 127/81; PULSE 100; RESP 18; TEMP 98
[2019-04-22] MEDS ORDERED: SODIUM CHLORIDE 0.9% 1,000 ML IV STA (23:05)
[2019-04-22] MEDS ORDERED: diphenhydrAMINE 50 MG/ML 1 ML VIAL IVP STA (23:05)
[2019-04-22] MEDS ORDERED: METOCLOPRAMIDE 5 MG/ML 2 ML VIAL IVP STA (23:05)
[2019-04-22 23:19] LABS: Basophils % (A) 0 %; Eosinophils # (A) 0.3 k/uL (0-0.7); Eosinophils % (A) 4 %; HCT 31.2 % (34.0-46.0); HGB 10.6 gm/dL (11.4-16.0); Lymphocytes # (A) 1.7 k/uL (1.0-4.8); Lymphocytes % (A) 22 %; MCH 28.7 pg (25.0-35.0); MCHC 33.8 g/dL (31.0-37.0); MCV 84.8 fL (80.0-100.0); Monocytes # (A) 0.3 k/uL (0-1.0); Monocytes % (A) 4 %; Neutrophils % (A) 68 %; Platelet Count 215 k/uL (150-450); RBC 3.68 m/uL (3.80-5.40); RDW 14.4 % (11.5-15.5); WBC 7.4 k/uL (3.8-10.6)
[2019-04-22 23:34] LABS: ALT 15 U/L (9-52); AST 17 U/L (14-36); African American GFR (CKD) >90 (>60 ml/min/1.73 sqM); Albumin 3.3 g/dL (3.5-5.0); Alkaline Phosphatase 91 U/L (38-126); Anion Gap 7 mmol/L; Blood Urea Nitrogen 7 mg/dL (7-17); Calcium 8.3 mg/dL (8.4-10.2); Carbon Dioxide 24 mmol/L (22-30); Chloride 105 mmol/L (98-107); Glucose 97 mg/dL (74-99); Potassium 3.8 mmol/L (3.5-5.1); Sodium 136 mmol/L (137-145); Total Bilirubin 0.1 mg/dL (0.2-1.3)
[2019-04-22] MEDS ORDERED: AMOXICILLIN 500MG STARTER PACK 3 CAP BTL PO STA (23:58)
--- NOTE | 2019-04-22 23:58 | ED ---
Headache HPI - General Chief Complaint: Headache Stated Complaint: Headache Time Seen by Provider: 04/22/19 22:40 Source: RN notes reviewed, old records reviewed Mode of arrival: ambulatory Limitations: no limitations - History of Present Illness Initial Comments: Patient's a 24 rolled female presents emergency Department chief complaint of dental pain causing her to have headache. She reports it started 3 days ago after she broke her tooth. Patient states it's a sharp stabbing pain occasionally her tooth up to her face behind her eye. Patient states that she is . She was seen by labor and delivery today. Patient has normal vital signs Patient denies any related complaints. We'll changes, abdominal pain nausea or vomiting. She's been taking Tylenol for pain. - Related Data Previous Rx's Medication Instructions Recorded Amoxicillin 500 mg PO Q8H #21 capsule 04/22/19 Allergies Allergy/AdvReac Type Severity Reaction Status Date / Time Tetanus Vaccines and Toxoid Allergy Swelling Verified 04/22/19 22:37 Milk Containing Products AdvReac UPSET Verified 04/22/19 22:37 [Dairy] STOMACH Review of Systems ROS Statement: Those systems with pertinent positive or pertinent negative responses have been documented in the HPI. ROS Other: All systems not noted in ROS Statement are negative. Past Medical History Past Medical History: Asthma History of Any Multi-Drug Resistant Organisms: None Reported Past Surgical History: No Surgical Hx Reported Additional Past Surgical History / Comment(s): breast biopsy Past Psychological History: ADD/ADHD, Anxiety, Bipolar, Depression, PTSD Smoking Status: Never smoker Past Alcohol Use History: None Reported Past Drug Use History: None Reported - Past Family History Father Additional Family Medical History / Comment(s): Chonic low sugars, dyslexia Mother Family Medical History: No Reported History Sister(s) Family Medical History: Mitral Valve Prolapse (MVP) General Exam - General Exam Comments Initial Comments: 24-year-old female. Alert and oriented 3. No distress. General: Well appearing, well nourished, in no distress. Oriented x 3, normal mood and affect . Ambulating without difficulty. Skin: Good turgor, no rash, unusual bruising or prominent lesions Hair: Normal texture and distribution. HEENT: Head: Normocephalic, atraumatic, no visible or palpable masses, depressions, or scaring. Eyes: Visual acuity intact, conjunctiva clear, sclera non-icteric, EOM intact, PERRL. Ears: EACs clear, TMs translucent & cone of light visualized. hearing intact. Nose: No external lesions, mucosa non-inflamed, septum and turbinates normal Mouth: Mucous membranes moist, no mucosal lesions. Teeth/Gums: Dental caries. Broken tooth #12. Pharynx: Mucosa non-inflamed, no tonsillar hypertrophy or exudate Neck: Supple, without lesions, bruits, or adenopathy, thyroid non-enlarged and non-tender Heart: No cardiomegaly or thrills; regular rate and rhythm, no murmur or gallop Lungs: Clear to auscultation and percussion Abdomen: Bowel sounds normal, no tenderness, organomegaly, masses, or hernia Back: Spine normal without deformity or tenderness, no CVA tenderness Rectal: Normal sphincter tone, no hemorrhoids or masses palpable Extremities: No amputations or deformities, cyanosis, edema or varicosities, peripheral pulses intact Musculoskeletal: Normal gait and station. No misalignment, asymmetry, crepitation, defects, tenderness, masses, effusions, decreased range of motion, instability, atrophy or abnormal strength or tone in the head, neck, spine, ribs, pelvis or extremities. Neurologic: CN 2-12 normal. Sensation to pain, touch, and proprioception normal. DTRs normal in upper and lower extremities. No pathologic reflexes. Psychiatric: Oriented X3, intact recent and remote memory, judgment and insight, normal mood and affect. Limitations: no limitations Course Vital Signs 04/22/19 22:31 Temperature 98 F Pulse Rate 100 Respiratory 18 Rate Blood Pressure 127/81 O2 Sat by Pulse 98 Oximetry Medical Decision Making - Medical Decision Making 4-year-old presents emergency and today was 2. headache. The same Patient has a broken tooth related to her onset of pain. She has no neurological deficits. Vital signs are stable no signs of preeclampsia. Her urine sample earlier today instructed and has 1+ protein. Patient CBC CMP are unremarkable. I discussed the Patient that his ears were related to her dental condition. Discussed with the Patient on antibiotics amoxicillin for this. Patient advised return parameters and following up with DENTAL TECHNICIAN APPRENTICE dimension falling up with dentist. Patient is agreeable to treatment plan will comply. - Lab Data Result diagrams: 04/22/19 23:11 04/22/19 23:11 Lab Results 04/22/19 04/22/19 Range/Units 23:11 23:11 WBC 7.4 (3.8-10.6) k/uL RBC 3.68 L (3.80-5.40) m/uL Hgb 10.6 L (11.4-16.0) gm/dL Hct 31.2 L (34.0-46.0) % MCV 84.8 (80.0-100.0) fL MCH 28.7 (25.0-35.0) pg MCHC 33.8 (31.0-37.0) g/dL RDW 14.4 (11.5-15.5) % Plt Count 215 (150-450) k/uL Neutrophils % 68 % Lymphocytes % 22 % Monocytes % 4 % Eosinophils % 4 % Basophils % 0 % Neutrophils # 5.0 (1.3-7.7) k/uL Lymphocytes # 1.7 (1.0-4.8) k/uL Monocytes # 0.3 (0-1.0) k/uL Eosinophils # 0.3 (0-0.7) k/uL Basophils # 0.0 (0-0.2) k/uL Sodium 136 L (137-145) mmol/L Potassium 3.8 (3.5-5.1) mmol/L Chloride 105 (98-107) mmol/L Carbon Dioxide 24 (22-30) mmol/L Anion Gap 7 mmol/L BUN 7 (7-17) mg/dL Creatinine 0.41 L (0.52-1.04) mg/dL Est GFR (CKD-EPI)AfAm >90 (>60 ml/min/1.73 sqM) Est GFR (CKD-EPI)NonAf >90 (>60 ml/min/1.73 sqM) Glucose 97 (74-99) mg/dL Calcium 8.3 L (8.4-10.2) mg/dL Total Bilirubin 0.1 L (0.2-1.3) mg/dL AST 17 (14-36) U/L ALT 15 (9-52) U/L Alkaline Phosphatase 91 (38-126) U/L Total Protein 6.0 L (6.3-8.2) g/dL Albumin 3.3 L (3.5-5.0) g/dL Disposition Clinical Impression: Pain, dental, Cracked tooth, Migraine Disposition: HOME SELF-CARE Condition: Good Instructions (If sedation given, give patient instructions): Acute Headache (ED), Toothache (ED) Additional Instructions: Please use medication as discussed. Please follow up with OB or family doctor if symptoms have not improved over the next two days. Please return to the emergency room if your symptoms increase or worsen or for any other concerns. Prescriptions: Amoxicillin 500 mg PO Q8H #21 capsule Is patient prescribed a controlled substance at d/c from ED?: No Referrals: Amirah Carrillo MD [Primary Care Provider] - 1-2 days Time of Disposition: 23:55
[2019-04-23] MEDS ORDERED: ACETAMINOPHEN TAB 500 MG TAB PO STA (00:01)
== END 2019-04-23 00:17 | disposition home or self-care (01) ==
LOC: EC 22:31
DX: O99.353 Diseases of the nervous system complicating pregnancy, third trimester (principal); G43.909 Migraine, unspecified, not intractable, without status migrainosus; O99.619 Diseases of the digestive system complicating pregnancy, unspecified trimester; K03.81 Cracked tooth; K02.9 Dental caries, unspecified; Z3A.32 32 weeks gestation of pregnancy; Z88.7 Allergy status to serum and vaccine; Z91.011 Allergy to milk products
CPT/HCPCS: 36415; 80053; 85025; 99284; 96374; 96375; 96361; J1200; J2765

== ENCOUNTER 2019-05-13 07:27 | Outpatient (CLI) | payer OTHER ==
[2019-05-13 08:01] VITALS: BP 123/75; PULSE 93; RESP 16; TEMP 98.2
[2019-05-13] MEDS ORDERED: ONDANSETRON 4 MG/2 ML VIAL IVP STA (08:20)
[2019-05-13 08:23] LABS: Appearance,Urine Cloudy (Clear); Bacteria,Urine Rare /hpf; Bilirubin,Urine Negative (Negative); Blood,Urine Negative (Negative); Color,Urine Yellow; Glucose,Urine (UA) Negative (Negative); Ketones,Urine 4+ (Negative); Leukocyte Esterase,Urine Negative (Negative); Mucus,Urine Moderate /hpf; Nitrite,Urine Negative (Negative); Protein,Urine 1+ (Negative); RBC,Urine 1 /hpf (0-5); Squamous Epithelial Cell,Urine 8 /hpf (0-4); WBC,Urine 3 /hpf (0-5)
[2019-05-13] MEDS: LACTATED RINGERS 1,000 ML IV SCH ×2 (08:30→08:56)
--- NOTE | 2019-05-13 10:18 | P.MSEPDOC ---
Presenting Problems - Arrival Data Date of Arrival on Unit: 05/13/19 Time of Arrival on Unit: 07:36 Mode of Transport: Ambulatory - Complaint OB-Reason for Admission/Chief Complaint: Other Comment: pt arrived c/o throwing up for 24 hours . pt states shes had a cold and cough. that she starts coughing and throws up Medical History - Information : 1 Para: 0 Term: 0 : 0 Abortions: Spontaneous or Elective: 0 Number of Living Children: 0 - Gestational Age Gestational Age by JOSE MARTIN (wks/days): 35 Weeks and 0 Days Review of Systems - Review of Systems Constitutional: No problems Breast: No problems ENT: Sore throat, Cough, Nasal congestion Cardiovascular: No problems Respiratory: No problems Gastrointestinal: Constipation Genitourinary: No problems Musculoskeletal: No problems Neurological: No problems Skin: No problems Vital Signs - Temperature Temperature: 98.2 F Temperature Source: Oral - Pulse Right Brachial Pulse Rate: 93 Pulse Assessment Method: Automatic Cuff - Respirations Respiratory Rate: 16 Oxygen Delivery Method: Room Air O2 Sat by Pulse Oximetry: 97 - Blood Pressure Right Arm Blood Pressure: 123/75 Blood Pressure Mean: 91 Blood Pressure Source: Automatic Cuff Medical Screen Scoring (Pre) - Cervical Exam Dilation: Exam Deferred Effacement: Exam Deferred - Uterine Contractions Frequency: N/A Duration: N/A Intensity: N/A - Maternal Vital Signs Maternal Temperature: N/A Maternal Blood Pressure: N/A Signs of Preeclampsia: Nausea/Vomiting = 1 Maternal Respirations: N/A - Maternal Trauma Maternal Trauma: N/A - Assessment - Baby A Baseline FHR: 140 Heart Rate - NICHD Category: Category I (Normal) = 0 - Total Score - Baby A Total Score - Baby A: 1 - Total Score - Baby B Total Score - Baby B: 1 - Total Score - Baby C Total Score - Baby C: 1 - Level of Risk - Baby A Level of Risk - Baby A: Low (0-5) - Level of Risk - Baby B Level of Risk - Baby B: Low (0-5) - Level of Risk - Baby C Level of Risk - Baby C: Low (0-5) Medical Screen Scoring (Post) - Assessment - Baby A Heart Rate: 140 Heart Rate - NICHD Category: Category I (Normal) = 0 NST: Reactive Position: N/A Station: N/A - Total Score Total Score - Baby A: 0 - Post Treatment Level of Risk Post Treatment Level of Risk - Baby A: Low (0-5) Physician Notification (Post) - Physician Notified Physician Notified Date: 05/13/19 Physician Notified Time: 08:10 Spoke With: dr arce New Order Received: Yes - Notification Comment Comment: start iv and given 2 liters of iv fluids and give zofran. and after iv infused and reactive nst may discharge to home Disposition - Disposition OB Disposition: Discharge to home Discharge Date: 05/13/19 Discharge Time: 09:32 I agree with the RN Medical Screening Exam: Yes Risk & Benefit of care provided described in d/c instruction: Yes Diagnosis: VOMITING OF , UNSPECIFIED
== END 2019-05-13 09:32 | disposition home or self-care (01) ==
LOC: FBPOP 07:27
PROVIDERS: ATTEND Obstetrics & Gynecology
DX: O21.9 Vomiting of pregnancy, unspecified (principal); Z3A.35 35 weeks gestation of pregnancy
CPT/HCPCS: 59025; 96360; 96375; 81001; G0463; J2405; 99214

== ENCOUNTER 2019-06-11 06:00 | Inpatient (IN) | payer BC, OTHER ==
--- NOTE | 2019-06-10 19:30 | P.HPOB ---
History of Present Illness H&P Date: 06/10/19 Chief Complaint: Induction of labor This is a 24 Waller female 1 para 0 with an estimated date of confinement of 06/17/2019, estimated gestational age of 39 and one sevenths weeks, who presents to labor and delivery for induction of labor. She admits to good movement. She denies any rupture of membranes. She has been feeling irregular contractions and lower back pain. course has been complicated by nausea and vomiting and hyperemesis early on in the . labs: GC/chlamydia-negative Blood type-O+ Antibody screen-negative Rubella-immune HIV-nonreactive Toxoplasma screen-negative RPR-nonreactive Hepatitis B surface antigen-negative Quad screen-negative One hour Glucola-110 Group B streptococcus-negative Obstetrical history: This is her first Gynecologic history: No history of sexual transmitted diseases. Social history: She is single. She works full-time in assisted living. Review of Systems Constitutional: Denies chills, Denies fever Eyes: denies blurred vision, denies pain Ears, nose, mouth and throat: Denies headache, Denies sore throat Cardiovascular: Denies chest pain, Denies shortness of breath Respiratory: Denies cough Gastrointestinal: Reports abdominal pain (Irregular contractions) Genitourinary: Reports pelvic pain, Reports Musculoskeletal: Reports low back pain Integumentary: Denies pruritus, Denies rash Neurological: Denies numbness, Denies weakness Psychiatric: Denies anxiety, Denies depression Past Medical History Past Medical History: Asthma History of Any Multi-Drug Resistant Organisms: None Reported Past Surgical History: No Surgical Hx Reported Additional Past Surgical History / Comment(s): breast biopsy Past Psychological History: Depression, PTSD Smoking Status: Never smoker Past Alcohol Use History: None Reported Past Drug Use History: None Reported - Past Family History Father Additional Family Medical History / Comment(s): Chonic low sugars, dyslexia Mother Family Medical History: No Reported History Sister(s) Family Medical History: Mitral Valve Prolapse (MVP) Medications and Allergies Home Medications Medication Instructions Recorded Confirmed Type Amoxicillin 500 mg PO Q8H #21 capsule 04/22/19 Rx Allergies Allergy/AdvReac Type Severity Reaction Status Date / Time Tetanus Vaccines and Toxoid Allergy Swelling Verified 05/13/19 07:45 Milk Containing Products AdvReac UPSET Verified 05/13/19 07:45 [Dairy] STOMACH Exam Osteopathic Statement: *. No significant issues noted on an osteopathic structural exam other than those noted in the History and Physical/Consult. HEENT: Within normal limits Heart: Regular rate and rhythm Lungs: Clear to auscultation bilaterally Abdomen: Cervix: 1-1/2 cm/70%/-1 station heart tones: 140s by Doppler Extremities: Negative Homans Assessment and Plan (1) 39 weeks gestation of Status: Acute Code(s): Z3A.39 - 39 WEEKS GESTATION OF SNOMED Code(s): 05017389 Plan: Admission for induction of labor. Expectant management. Epidural anesthesia if desired.
[2019-06-11] MEDS ORDERED: LIDOCAINE 1% 20 ML VIAL (10MG/ML) FOR IV START INTRADERMA PRN (06:19)
[2019-06-11] MEDS ORDERED: TERBUTALINE 1 MG/ML VIAL SQ PRN (06:19)
[2019-06-11] MEDS ORDERED: CARBOPROST TROMETHAMINE 250 MCG/ML 1 ML AMP IM PRN (06:19)
[2019-06-11] MEDS ORDERED: LIDOCAINE 0.5% (PF) 5 MG/ML (50 ML SDV) SQ PRN (06:19)
[2019-06-11] MEDS ORDERED: METHYLERGONOVINE 0.2 MG/ML 1 ML AMP IM PRN (06:19)
[2019-06-11] MEDS ORDERED: OXYTOCIN 10 UNIT/ML 1 ML VIAL IM PRN (06:19)
[2019-06-11] MEDS ORDERED: OXYTOCIN 30 UNITS/500 ML NS 30 UNIT in SALINE 1 500ML.BAG IV SCH (06:19)
[2019-06-11] MEDS: LACTATED RINGERS 1,000 ML IV SCH ×3 (06:22→14:54)
[2019-06-11 06:27] LABS: Basophils % (A) 0 %; Eosinophils # (A) 0.3 k/uL (0-0.7); Eosinophils % (A) 3 %; HCT 30.7 % (34.0-46.0); HGB 10.2 gm/dL (11.4-16.0); Lymphocytes # (A) 2.2 k/uL (1.0-4.8); Lymphocytes % (A) 27 %; MCH 27.7 pg (25.0-35.0); MCHC 33.2 g/dL (31.0-37.0); MCV 83.3 fL (80.0-100.0); Mean Platelet Volume 6.9; Monocytes # (A) 0.3 k/uL (0-1.0); Monocytes % (A) 4 %; Neutrophils # (A) 5.2 k/uL (1.3-7.7); Neutrophils % (A) 63 %; Platelet Count 208 k/uL (150-450); RBC 3.68 m/uL (3.80-5.40); RDW 14.1 % (11.5-15.5); WBC 8.3 k/uL (3.8-10.6)
[2019-06-11 06:37] VITALS: BMI 37.8
[2019-06-11] MEDS ORDERED: BUTORPHANOL 1 MG/ML 1 ML VIAL IV PRN (09:49)
[2019-06-11] MEDS ORDERED: ZOLPIDEM 5 MG TAB PO PRN (11:26)
[2019-06-11] MEDS ORDERED: ACETAMINOPHEN TAB 325 MG TAB PO PRN (11:26)
[2019-06-11] MEDS ORDERED: SIMETHICONE 80 MG CHEWABLE PO PRN (11:26)
[2019-06-11] MEDS ORDERED: WITCH HAZEL 1 EACH MED..PAD TOPICAL PRN (11:26)
[2019-06-11] MEDS ORDERED: diphenhydrAMINE 50 MG/ML 1 ML VIAL IVP PRN ×2 (11:26)
[2019-06-11] MEDS ORDERED: diphenhydrAMINE 50 MG CAP PO PRN (11:26)
[2019-06-11] MEDS ORDERED: OXYTOCIN 20 UNITS/1000 ML NS 1,000 ML IV SCH (11:26)
[2019-06-11] MEDS ORDERED: diphenhydrAMINE 25 MG CAP PO PRN (11:26)
[2019-06-11] MEDS ORDERED: BENZOCAINE/MENTHOL SPRAY 1 GM/SPRAY AEROSOL TOPICAL PRN (11:26)
[2019-06-11] MEDS ORDERED: HYDROCORTISONE 2.5% RECTAL CREAM 30 GM TUBE RECTAL PRN (11:26)
[2019-06-11] MEDS ORDERED: LANOLIN CREAM 5 GM TUBE TOPICAL PRN (11:26)
[2019-06-11] MEDS ORDERED: ROPIVACAINE 100 MG, fentaNYL (PF) 200 MCG in SODIUM CHLORIDE 0.9% 76 ML EPIDURAL ONE (14:40)
--- NOTE | 2019-06-11 18:31 | P.PROBDLV ---
Vaginal Delivery Note - . Vaginal Delivery Note: The patient progressed to complete dilation after oxytocin induction of labor and artificial rupture membranes with clear fluid noted. She did receive epidural anesthesia while in labor. Once reaching complete dilation, she began pushing. 's head came to a crown. With one further push, the infant's head delivered across the perineum followed by the anterior shoulder. Nose and mouth were bulb suctioned at the perineum. Nuchal cord times one was doubly cla mped and cut and reduced around the 's head. With one further push, the remainder the easily delivered and was placed on mother's abdomen. Nose and mouth were bulb suctioned again. was taken to warmer for evaluation. A viable male was noted with scores of 8 at 1 minute and 9 at 5 minutes and infant weight was 7 lbs. 5 oz. Placenta delivered shortly thereafter, intact, with a three-vessel cord. Uterus contracted well after oxytocin was given and uterine massage was carried out. Inspection of the perineum revealed a second-degree perineal laceration. This area was anesthetized with 1% lidocaine and then sutured with 3-0 and 2-0 Vicryl suture in the usual multilayer fashion. Estimated blood loss is approximately 200 mL. Several blood clots were expressed from the uterus and the uterus firmed up well. Mother is in stable condition. Infant was later taken to level I nursery for evaluation for some respiratory issues.
[2019-06-11] MEDS ORDERED: ONDANSETRON 4 MG/2 ML VIAL IVP PRN (18:42)
[2019-06-11] MEDS: IBUPROFEN 600 MG TAB PO PRN (19:45)
[2019-06-11] MEDS: SENNOSIDES-DOCUSATE SODIUM 1 EACH TAB PO SCH (22:39)
[2019-06-12] MEDS: IBUPROFEN 600 MG TAB PO PRN (04:43)
[2019-06-12 07:28] LABS: Basophils % (A) 0 %; Eosinophils # (A) 0.1 k/uL (0-0.7); Eosinophils % (A) 2 %; HCT 28.1 % (34.0-46.0); HGB 9.1 gm/dL (11.4-16.0); Hypochromasia Slight; Lymphocytes # (A) 1.6 k/uL (1.0-4.8); Lymphocytes % (A) 18 %; MCH 27.6 pg (25.0-35.0); MCHC 32.5 g/dL (31.0-37.0); MCV 84.9 fL (80.0-100.0); Mean Platelet Volume 7.4; Monocytes # (A) 0.3 k/uL (0-1.0); Monocytes % (A) 3 %; Neutrophils # (A) 6.5 k/uL (1.3-7.7); Neutrophils % (A) 75 %; Platelet Count 197 k/uL (150-450); RBC 3.31 m/uL (3.80-5.40); WBC 8.7 k/uL (3.8-10.6)
--- NOTE | 2019-06-12 08:49 | P.DS ---
Providers Date of admission: 06/11/19 06:00 Expected date of discharge: 06/12/19 Attending physician: Korin Waller Primary care physician: Stated None - Discharge Diagnosis(es) (1) 39 weeks gestation of Current Visit: No Status: Acute Hospital Course: This is a 24 to female 1 para 0 at 39 and one sevenths weeks who presented to labor and delivery for induction of labor. She underwent oxytocin induction of labor and delivered a viable male with scores of 8 at 1 minute and 9 at 5 minutes and weight of 7 lbs. 5 oz. Her course has been uncomplicated by the fact the baby went to level I nursery and then was transferred to [facility] for a pneumothorax. She has been pumping her breast milk. Lochia is decreasing. Pain is fairly well controlled with ibuprofen. Vital signs are stable. Abdomen is soft with fundus firm and nontender. Extremities show negative Homans. Impression is status post vaginal delivery day #1. Plan is to discharge home today. Routine instructions are given. She is advised to follow up in the office in 6 weeks for check. She is advised to call the office if she is any further questions or concerns prior to her appointment time. She will be given a prescription for ibuprofen and a breast pump. Procedures: Oxytocin induction of labor Spontaneous vaginal delivery of a viable male infant on 06/11/2019 Patient Condition at Discharge: Stable Plan - Discharge Summary New Discharge Prescriptions: New Ibuprofen [Motrin] 600 mg PO Q6HR PRN #60 tab PRN Reason: Mild Pain Or Fever >= 100.5 No Action Ranitidine HCl 150 mg PO HS PRN PRN Reason: Heartburn Ondansetron [Zofran] 4 mg PO Q12HR PRN PRN Reason: Nausea Discharge Medication List Ondansetron [Zofran] 4 mg PO Q12HR PRN 06/11/19 [History] Ranitidine HCl 150 mg PO HS PRN 06/11/19 [History] Ibuprofen [Motrin] 600 mg PO Q6HR PRN #60 tab 06/12/19 [Rx] Follow up Appointment(s)/Referral(s): Korin Waller DO [Doctor of Osteopathic Medicine] - 6 Weeks Activity/Diet/Wound Care/Special Instructions: Instructions 1. Do not begin any exercise program for 3 weeks. 2. Do not resume sexual relations for 3 weeks or longer if uncomfortable. 3. You may take tub baths or showers at any time. 4. You may use tampons if desired after 3 weeks. 5. Keep the area of episiotomy (stitches) clean and dry. 6. If you are not nursing, wear a good fitting, supportive bra during the day and limit fluid intake for at least 1 week to prevent breast engorgement. 7. Call the office, [phone], within the next week to make appointment for your 6 week checkup if it has not already been made. 8. Report any of the following occurrences to the doctor promptly: a. Heavy, excessive bleeding b. Chills, fever c. Burning or frequency of urination d. Pain or redness and breasts if nursing e. Increasing pain or swelling in episiotomy (stitches). In addition to the above instructions, the following additional should be followed: 1. No heavy lifting or straining (exercising) until after 6 week checkup. 2. Keep abdominal incision clean and dry: You may wear a dressing if more comfortable. 3. Make office appointment for 10 days after going home or as instructed by her doctor. Discharge Disposition: HOME SELF-CARE
[2019-06-12] MEDS: SENNOSIDES-DOCUSATE SODIUM 1 EACH TAB PO SCH (08:56)
[2019-06-12 09:44] VITALS: BP 110/76; PULSE 89; RESP 18; TEMP 98.1
== END 2019-06-12 11:32 | disposition home or self-care (01) | DRG 807 ==
LOC: 4FBP 06:00
PROVIDERS: ADMIT Obstetrics & Gynecology; ATTEND Obstetrics & Gynecology
PROC: 0KQM0ZZ Repair Perineum Muscle, Open Approach (ICD-10-PCS; principal; 2019-06-11)
PROC: 10E0XZZ Delivery of Products of Conception, External Approach (ICD-10-PCS; 2019-06-11)
PROC: 3E033VJ Introduction of Other Hormone into Peripheral Vein, Percutaneous Approach (ICD-10-PCS; 2019-06-11)
DX: O69.81X0 Labor and delivery complicated by cord around neck, without compression, not applicable or unspecified (principal); Z37.0 Single live birth; O70.1 Second degree perineal laceration during delivery; O21.0 Mild hyperemesis gravidarum; F43.10 Post-traumatic stress disorder, unspecified; F32.9 Major depressive disorder, single episode, unspecified; J45.909 Unspecified asthma, uncomplicated; O99.344 Other mental disorders complicating childbirth; O99.52 Diseases of the respiratory system complicating childbirth; Z3A.39 39 weeks gestation of pregnancy; Z88.7 Allergy status to serum and vaccine; Z91.011 Allergy to milk products
CPT/HCPCS: 85025; 86850; 86900; 86901

== ENCOUNTER 2023-06-21 03:30 | Emergency (ER) | payer OTHER ==
[2023-06-21] MEDS ORDERED: ONDANSETRON 4 MG/2 ML VIAL IVP STA (03:47)
[2023-06-21] MEDS ORDERED: KETOROLAC 15 MG/ML 1 ML VIAL IVP STA (03:47)
[2023-06-21] MEDS ORDERED: SODIUM CHLORIDE 0.9% 1,000 ML IV STA (03:47)
--- NOTE | 2023-06-21 04:06 | ED ---
Abdominal Pain HPI - General Chief Complaint: Abdominal Pain Stated Complaint: Abd Pain Time Seen by Provider: 06/21/23 03:34 Source: patient, RN notes reviewed, old records reviewed Mode of arrival: ambulatory Limitations: no limitations - History of Present Illness Initial Comments: This is a 28-year-old female DF for evaluation severe abdominal pain severe right flank pain with radiation to back and groin. Pain radiates to the anterior abdomen as well. Patient has no fevers and was sudden onset of pain about 2 hours ago severe nausea vomiting. MD Complaint: abdominal pain, flank pain (Right-sided) -: hour(s) (2) Location: RLQ, R flank Radiation: RLQ, R flank Migration to: suprapubic Severity: severe Severity scale (1-10): 10 Quality: stabbing, aching Consistency: constant Improves With: nothing Worsens With: nothing Associated Symptoms: nausea, vomiting Treatments Prior to Arrival: other (0) - Related Data Home Medications Medication Instructions Recorded Confirmed Acetaminophen [Tylenol Extra 1,000 mg PO Q4H PRN 08/22/19 08/27/19 Strength] Previous Rx's Medication Instructions Recorded HYDROcodone/APAP 5-325MG [[place] 1 tab PO Q4HR PRN 3 Days #18 tab 08/27/19 5-325] Allergies Allergy/AdvReac Type Severity Reaction Status Date / Time Tetanus Vaccines and Toxoid Allergy Swelling Verified 06/21/23 08:37 Milk Containing Products AdvReac UPSET Verified 06/21/23 08:37 (Dairy) STOMACH [Dairy] Review of Systems ROS Statement: Those systems with pertinent positive or pertinent negative responses have been documented in the HPI. ROS Other: All systems not noted in ROS Statement are negative. Past Medical History Past Medical History: No Reported History History of Any Multi-Drug Resistant Organisms: None Reported Past Surgical History: Tubal Ligation Past Psychological History: ADD/ADHD, Anxiety, Depression Smoking Status: Never smoker Past Alcohol Use History: Occasional Past Drug Use History: None Reported - Past Family History Father Additional Family Medical History / Comment(s): Chonic low sugars, dyslexia. Mother Family Medical History: No Reported History Sister(s) Family Medical History: Mitral Valve Prolapse (MVP) General Exam Limitations: no limitations General appearance: alert, in no apparent distress Head exam: Present: atraumatic, normocephalic, normal inspection Eye exam: Present: normal appearance, PERRL, EOMI. Absent: scleral icterus, conjunctival injection, periorbital swelling ENT exam: Present: normal exam, mucous membranes moist Neck exam: Present: normal inspection. Absent: tenderness, meningismus, lymphadenopathy Respiratory exam: Present: normal lung sounds bilaterally. Absent: respiratory distress, wheezes, rales, rhonchi, stridor Cardiovascular Exam: Present: regular rate, normal rhythm, normal heart sounds. Absent: systolic murmur, diastolic murmur, rubs, gallop, clicks GI/Abdominal exam: Present: soft, normal bowel sounds. Absent: distended, tenderness, guarding, rebound, rigid Extremities exam: Present: normal inspection, full ROM, normal capillary refill. Absent: tenderness, pedal edema, joint swelling, calf tenderness Back exam: Present: normal inspection Neurological exam: Present: alert, oriented X3, CN II-XII intact Psychiatric exam: Present: normal affect, normal mood Skin exam: Present: warm, dry, intact, normal color. Absent: rash Course Vital Signs 06/21/23 06/21/23 06/21/23 03:42 04:41 06:50 Temperature 97.9 F Pulse Rate 77 76 94 Respiratory 18 17 19 Rate Blood Pressure 95/63 118/79 135/81 O2 Sat by Pulse 100 99 98 Oximetry 06/21/23 08:00 Temperature 98 F Pulse Rate 81 Respiratory 18 Rate Blood Pressure 131/79 O2 Sat by Pulse 98 Oximetry - Reevaluation(s) Reevaluation #1: 06/21/23 04:40 Medical records reviewed Reevaluation #2: Patient symptoms are improved Reevaluation #3: Patient informed results and questions answered Reevaluation #4: 06/21/23 04:40 Was pt. sent in by a medical professional or institution (, PA, ELECTRICAL ACCESSORIES I ASSEMBLER, urgent care, hospital, or retirement...) When possible be specific @ -no Did you speak to anyone other than the patient for history (EMS, parent, family, police, friend...)? What history was obtained from this source @ -no Did you review nursing and triage notes (agree or disagree)? Why? @ -agree Are old charts reviewed (outside hosp., previous admission, EMS record, old EKG, old radiological studies, urgent care reports/EKG's, retirement records)? Report findings @ -yes Differential Diagnosis (chest pain, altered mental status, abdominal pain women, abdominal pain men, vaginal bleeding, weakness, fever, dyspnea, syncope, headache, dizziness, GI bleed, back pain, seizure, CVA, palpatations, mental health, musculoskeletal)? @ -prior EKG interpreted by me (3pts min.). @ -yes X-rays interpreted by me (1pt min.). @ -yes CT interpreted by me (1pt min.). @ -no U/S interpreted by me (1pt. min.). @ -no What testing was considered but not performed or refused? (CT, X-rays, U/S, labs)? Why? @ -none What meds were considered but not given or refused? Why? @ -none Did you discuss the management of the patient with other professionals (professionals i.e. , PA, ELECTRICAL ACC[employer]IES I ASSEMBLER, lab, RT, psych nurse, psychiatric social worker supervisor, nuclear fuel processing technician, teacher, chief credit officer, case folder)? Give summary @ -no Was smoking cessation discussed for >3mins.? @ -no Was critical care preformed (if so, how long)? @ -no Were there social determinants of health that impacted care today? How? (Homelessness, low income, unemployed, alcoholism, drug addiction, transportation, low edu. Level, literacy, decrease access to med. care, mcc, rehab)? @ -none Was there de-escalation of care discussed even if they declined (Discuss DNR or withdrawal of care, Hospice)? DNR status @ -no What co-morbidities impacted this encounter? (DM, HTN, Smoking, COPD, CAD, Cancer, CVA, ARF, Chemo, Hep., AIDS, mental health diagnosis, sleep apnea, morbid obesity)? @ -none Was patient admitted / discharged? Hospital course, mention meds given and route, prescriptions, significant lab abnormalities, going to OR and other pertinent info. @ - Undiagnosed new problem with uncertain prognosis? @ -no Drug Therapy requiring intensive monitoring for toxicity (Heparin, Nitro, Insulin, Cardizem)? @ -no Were any procedures done? @ -no Diagnosis/symptom? @ - Acute, or Chronic, or Acute on Chronic? @ -Acute Uncomplicated (without systemic symptoms) or Complicated (systemic symptoms)? @ -Complicated Side effects of treatment? @ -no Exacerbation, Progression, or Severe Exacerbation? @ -exacerbation Poses a threat to life or bodily function? How? (Chest pain, [place], [place], pneumonia, PE, COPD, DKA, ARF, appy, cholecystitis, CVA, Diverticulitis, Homicidal, Suicidal, threat to staff... and all critical care pts) @ -yes Reevaluation #5: 06/21/23 04:40 Differential Abdominal Pain Women: Appendicitis, Cholecystitis, diverticulosis, ischemic bowel, pancreatitis, hepatitis, UTI, gastroenteritis, AAA, incarcerated hernia, bowel obstruction, constipation, inflammatory bowel, hepatitis, peptic ulcer disease, splenic infarction, perforated viscus, vulvitis, ovarian torsion, PID, kidney stone, placenta abruption, this is not meant to be an all-inclusive list Medical Decision Making - Medical Decision Making 28 female to the emergency department for evaluation severe onset of abdominal pain. Positive kidney stones. Patient given pain control feeling well can be discharged home - Lab Data Result diagrams: 06/21/23 04:09 06/21/23 04:09 Lab Results 06/21/23 06/21/23 06/21/23 Range/Units 04:09 04:09 04:09 WBC 10.1 (3.8-10.6) k/uL RBC 4.65 (3.80-5.40) m/uL Hgb 13.4 (11.4-16.0) gm/dL Hct 39.3 (34.0-46.0) % MCV 84.4 (80.0-100.0) fL MCH 28.8 (25.0-35.0) pg MCHC 34.1 (31.0-37.0) g/dL RDW 13.4 (11.5-15.5) % Plt Count 202 (150-450) k/uL MPV 8.3 Neutrophils % 60 % Lymphocytes % 31 % Monocytes % 4 % Eosinophils % 4 % Basophils % 0 % Neutrophils # 6.0 (1.3-7.7) k/uL Lymphocytes # 3.1 (1.0-4.8) k/uL Monocytes # 0.4 (0-1.0) k/uL Eosinophils # 0.4 (0-0.7) k/uL Basophils # 0.0 (0-0.2) k/uL Sodium 137 (137-145) mmol/L Potassium 3.7 (3.5-5.1) mmol/L Chloride 105 (98-107) mmol/L Carbon Dioxide 22 (22-30) mmol/L Anion Gap 10 mmol/L BUN 12 (7-17) mg/dL Creatinine 0.62 (0.52-1.04) mg/dL Est GFR (CKD-EPI)AfAm >90 (>60 ml/min/1.73 sqM) Est GFR (CKD-EPI)NonAf >90 (>60 ml/min/1.73 sqM) Glucose 140 H (74-99) mg/dL Lactic Ac Sepsis Rflx Plasma Lactic Acid [place] 2.1 H* (0.7-2.0) mmol/L Calcium 8.9 (8.4-10.2) mg/dL Phosphorus 3.4 (2.5-4.5) mg/dL Magnesium 2.0 (1.6-2.3) mg/dL Total Bilirubin 0.3 (0.2-1.3) mg/dL AST 28 (14-36) U/L ALT 28 (4-34) U/L Alkaline Phosphatase 81 (38-126) U/L Total Protein 6.2 L (6.3-8.2) g/dL Albumin 3.8 (3.5-5.0) g/dL Amylase 60 (30-110) U/L Lipase 97 (23-300) U/L Urine Color Urine Appearance (Clear) Urine pH (5.0-8.0) Ur Specific [place] (1.001-1.035) Urine Protein (Negative) Urine Glucose (UA) (Negative) Urine Ketones (Negative) Urine Blood (Negative) Urine Nitrite (Negative) Urine Bilirubin (Negative) Urine Urobilinogen (<2.0) mg/dL Ur Leukocyte Esterase (Negative) Urine RBC (0-5) /hpf Urine WBC (0-5) /hpf Ur Squamous Epith Cells (0-4) /hpf Amorphous Sediment (None) /hpf Urine Bacteria (None) /hpf Urine Mucus (None) /hpf 06/21/23 06/21/23 06/21/23 Range/Units 04:30 07:00 07:59 WBC (3.8-10.6) k/uL RBC (3.80-5.40) m/uL Hgb (11.4-16.0) gm/dL Hct (34.0-46.0) % MCV (80.0-100.0) fL MCH (25.0-35.0) pg MCHC (31.0-37.0) g/dL RDW (11.5-15.5) % Plt Count (150-450) k/uL MPV Neutrophils % % Lymphocytes % % Monocytes % % Eosinophils % % Basophils % % Neutrophils # (1.3-7.7) k/uL Lymphocytes # (1.0-4.8) k/uL Monocytes # (0-1.0) k/uL Eosinophils # (0-0.7) k/uL Basophils # (0-0.2) k/uL Sodium (137-145) mmol/L Potassium (3.5-5.1) mmol/L Chloride (98-107) mmol/L Carbon Dioxide (22-30) mmol/L Anion Gap mmol/L BUN (7-17) mg/dL Creatinine (0.52-1.04) mg/dL Est GFR (CKD-EPI)AfAm (>60 ml/min/1.73 sqM) Est GFR (CKD-EPI)NonAf (>60 ml/min/1.73 sqM) Glucose (74-99) mg/dL Lactic Ac Sepsis Rflx Y Plasma Lactic Acid [place] 1.2 (0.7-2.0) mmol/L Calcium (8.4-10.2) mg/dL Phosphorus (2.5-4.5) mg/dL Magnesium (1.6-2.3) mg/dL Total Bilirubin (0.2-1.3) mg/dL AST (14-36) U/L ALT (4-34) U/L Alkaline Phosphatase (38-126) U/L Total Protein (6.3-8.2) g/dL Albumin (3.5-5.0) g/dL Amylase (30-110) U/L Lipase (23-300) U/L Urine Color Light Yellow Urine Appearance Cloudy H (Clear) Urine pH 7.0 (5.0-8.0) Ur Specific [place] 1.020 (1.001-1.035) Urine Protein Trace H (Negative) Urine Glucose (UA) Negative (Negative) Urine Ketones Negative (Negative) Urine Blood Small H (Negative) Urine Nitrite Negative (Negative) Urine Bilirubin Negative (Negative) Urine Urobilinogen <2.0 (<2.0) mg/dL Ur Leukocyte Esterase Negative (Negative) Urine RBC 29 H (0-5) /hpf Urine WBC 2 (0-5) /hpf Ur Squamous Epith Cells 6 H (0-4) /hpf Amorphous Sediment Rare H (None) /hpf Urine Bacteria Occasional H (None) /hpf Urine Mucus Rare H (None) /hpf - Radiology Data Radiology results: report reviewed (CT of the abdomen is positive for kidney stone), image reviewed Disposition Clinical Impression: Abdominal pain, Kidney stones, Right ureteral calculus Disposition: HOME SELF-CARE Condition: Good Instructions (If sedation given, give patient instructions): Kidney Stones (ED) Is patient prescribed a controlled substance at d/c from ED?: No Referrals: None,Stated [Primary Care Provider] - 1-2 days Time of Disposition: 07:00
[2023-06-21 04:25] LABS: Basophils % (A) 0 %; Eosinophils # (A) 0.4 k/uL (0-0.7); Eosinophils % (A) 4 %; HCT 39.3 % (34.0-46.0); HGB 13.4 gm/dL (11.4-16.0); Lymphocytes # (A) 3.1 k/uL (1.0-4.8); Lymphocytes % (A) 31 %; MCH 28.8 pg (25.0-35.0); MCHC 34.1 g/dL (31.0-37.0); MCV 84.4 fL (80.0-100.0); Mean Platelet Volume 8.3; Monocytes # (A) 0.4 k/uL (0-1.0); Monocytes % (A) 4 %; Neutrophils % (A) 60 %; Platelet Count 202 k/uL (150-450); RBC 4.65 m/uL (3.80-5.40); RDW 13.4 % (11.5-15.5); WBC 10.1 k/uL (3.8-10.6)
[2023-06-21] MEDS ORDERED: MORPHINE SULFATE 4 MG/ML SYRINGE IVP STA (04:30)
[2023-06-21 04:33] LABS: ALT 28 U/L (4-34); AST 28 U/L (14-36); African American GFR (CKD) >90 (>60 ml/min/1.73 sqM); Albumin 3.8 g/dL (3.5-5.0); Alkaline Phosphatase 81 U/L (38-126); Amylase 60 U/L (30-110); Anion Gap 10 mmol/L; Blood Urea Nitrogen 12 mg/dL (7-17); Calcium 8.9 mg/dL (8.4-10.2); Carbon Dioxide 22 mmol/L (22-30); Chloride 105 mmol/L (98-107); Glucose 140 mg/dL (74-99); Lipase 97 U/L (23-300); Non-African American GFR(CKD) >90 (>60 ml/min/1.73 sqM); Phosphorus 3.4 mg/dL (2.5-4.5); Potassium 3.7 mmol/L (3.5-5.1); Sodium 137 mmol/L (137-145); Total Bilirubin 0.3 mg/dL (0.2-1.3); Total Protein 6.2 g/dL (6.3-8.2)
--- NOTE | 2023-06-21 07:02 | CT ---
EXAMINATION TYPE: CT abdomen pelvis wo con CT DLP: 1003 and 14.4 mGycm, Automated exposure control for dose reduction was used. DATE OF EXAM: 06/21/2023 5:01 AM COMPARISON: None CLINICAL INDICATION:Female, 28 years old with history of pain; TECHNIQUE: Standard CT of the abdomen and pelvis without IV or oral contrast. Lack of IV or oral co ntrast limits evaluation of solid and hollow organ viscera. Coronal and sagittal reformats were perfo rmed. FINDINGS: LOWER CHEST: Unremarkable ABDOMEN LIVER: Unremarkable GALLBLADDER AND BILE DUCTS: Unremarkable. PANCREAS: Unremarkable. SPLEEN: Unremarkable. ADRENAL GLANDS: Unremarkable. KIDNEYS AND URETERS: Mild right hydroureteronephrosis with an obstructing 3 mm calculus at the ureter ovesical junction. No left renal calculi or hydronephrosis. No additional right renal calculi at this time. PELVIS BLADDER: Under distended, limiting evaluation. REPRODUCTIVE: Unremarkable. ABDOMEN & PELVIS STOMACH AND BOWEL: Stomach and duodenum are unremarkable. No focal bowel wall thickening or stranding inflammatory changes. The appendix is within normal limits. No evidence of bowel obstruction. PERITONEUM: No evidence of pneumoperitoneum or free fluid. VASCULATURE: No evidence of aortic aneurysm. MUSCULOSKELETAL: No acute osseous abnormalities LYMPH NODES: No gross evidence for lymphadenopathy. SOFT TISSUE/ABDOMINAL WALL: Unremarkable IMPRESSION: Mild right hydroureteronephrosis with an obstructing 3 mm calculus at the ureterovesical junction.
[2023-06-21] MEDS ORDERED: ACET/COD 300 MG/30 MG STARTER PACK 6 TAB BTL PO STA (07:05)
[2023-06-21] MEDS ORDERED: ONDANSETRON 4 MG ODT STARTER PACK 2 TAB BTL PO STA (07:05)
[2023-06-21] MEDS ORDERED: TAMSULOSIN 0.4 MG CAP.ER.24H PO STA (07:05)
[2023-06-21] MEDS ORDERED: IBUPROFEN 600 MG STARTER PACK 4 TAB BTL PO STA (07:05)
[2023-06-21 08:11] VITALS: BP 131/79; PULSE 81; RESP 18; TEMP 98
[2023-06-21 08:59] LABS: Amorphous Sediment,Urine Rare /hpf; Appearance,Urine Cloudy (Clear); Bacteria,Urine Occasional /hpf; Bilirubin,Urine Negative (Negative); Blood,Urine Small (Negative); Color,Urine Light Yellow; Glucose,Urine (UA) Negative (Negative); Ketones,Urine Negative (Negative); Leukocyte Esterase,Urine Negative (Negative); Mucus,Urine Rare /hpf; Nitrite,Urine Negative (Negative); Protein,Urine Trace (Negative); RBC,Urine 29 /hpf (0-5); Squamous Epithelial Cell,Urine 6 /hpf (0-4); Urobilinogen,Urine <2.0 mg/dL (<2.0); WBC,Urine 2 /hpf (0-5)
== END 2023-06-21 08:03 | disposition home or self-care (01) ==
LOC: MERGE 03:30 → EC 03:30
DX: N13.2 Hydronephrosis with renal and ureteral calculous obstruction (principal); Z86.59 Personal history of other mental and behavioral disorders; Z88.7 Allergy status to serum and vaccine; Z91.011 Allergy to milk products
CPT/HCPCS: 99285 ×2; 96374 ×2; 96375 ×3; 96361 ×2; 36415; 80053; 82150; 83605; 83690; 83735; 84100; 85025; 81001; 74176; J2270; J2405; J1885; S0119

== ENCOUNTER 2023-07-08 03:14 | Emergency (ER) | payer OTHER ==
--- NOTE | 2023-07-08 03:41 | ED ---
Eye Problem HPI - General Chief complaint: Eye Problems Stated complaint: Right Eye Irritation Time Seen by Provider: 07/08/23 03:33 Source: patient Mode of arrival: ambulatory Limitations: no limitations - History of Present Illness Initial comments: 28-year-old female presented with chief complaint of right eye irritation. Patient states that today she started experiencing redness and drainage from the eye. Drainage is green to yellow. Patient does not wear contact lenses. No foreign body sensation. No injury to the eye. No periorbital swelling. No fevers or chills. No vision changes. - Related Data Home Medications Medication Instructions Recorded Confirmed Acetaminophen [Tylenol Extra 1,000 mg PO Q4H PRN 08/22/19 08/27/19 Strength] Previous Rx's Medication Instructions Recorded HYDROcodone/APAP 5-325MG [Lynn 1 tab PO Q4HR PRN 3 Days #18 tab 08/27/19 5-325] Allergies Allergy/AdvReac Type Severity Reaction Status Date / Time Tetanus Vaccines and Toxoid Allergy Swelling Verified 07/08/23 03:27 Milk Containing Products AdvReac UPSET Verified 07/08/23 03:27 (Dairy) STOMACH [Dairy] Review of Systems ROS Statement: Those systems with pertinent positive or pertinent negative responses have been documented in the HPI. ROS Other: All systems not noted in ROS Statement are negative. Past Medical History Past Medical History: Asthma, GERD/Reflux, No Reported History Additional Past Medical History / Comment(s): Mild Asthma. History of Any Multi-Drug Resistant Organisms: None Reported Past Surgical History: Breast Surgery, Tubal Ligation Additional Past Surgical History / Comment(s): Left breast biopsy, wisdom teeth extracted. Past Anesthesia/Blood Transfusion Reactions: Previous Problems w/ Anesthesia, Motion Sickness Additional Past Anesthesia/Blood Transfusion Reaction / Comment(s): Panic attack/hyperventilated when came out of anesthesia. Past Psychological History: ADD/ADHD, Anxiety, Depression, PTSD Smoking Status: Never smoker Past Alcohol Use History: Occasional Past Drug Use History: None Reported - Past Family History Father Additional Family Medical History / Comment(s): Chonic low sugars, dyslexia. Mother Family Medical History: No Reported History Sister(s) Family Medical History: Mitral Valve Prolapse (MVP) General Exam Limitations: no limitations General appearance: alert, in no apparent distress Head exam: Present: atraumatic, normocephalic, normal inspection Eye exam: Present: PERRL, EOMI, conjunctival injection. Absent: periorbital swelling, periorbital tenderness Neck exam: Present: normal inspection, full ROM Respiratory exam: Absent: respiratory distress Neurological exam: Present: alert, oriented X3 Psychiatric exam: Present: normal affect, normal mood Skin exam: Present: warm, dry, intact, normal color. Absent: rash Course Vital Signs 07/08/23 03:20 Temperature 98.2 F Pulse Rate 103 H Respiratory 18 Rate Blood Pressure 135/89 O2 Sat by Pulse 98 Oximetry Medical Decision Making - Medical Decision Making Was pt. sent in by a medical professional or institution (, [facility], [facility], urgent care, hospital, or fci...) When possible be specific @ -No Did you speak to anyone other than the patient for history (EMS, parent, family, police, friend...)? What history was obtained from this source @ -No Did you review nursing and triage notes (agree or disagree)? Why? @ -I reviewed and agree with nursing and triage notes Were old charts reviewed (outside hosp., previous admission, EMS record, old EKG, old radiological studies, urgent care reports/EKG's, fci records)? Report findings @ -No old charts were reviewed Differential Diagnosis (chest pain, altered mental status, abdominal pain women, abdominal pain men, vaginal bleeding, weakness, fever, dyspnea, syncope, headache, dizziness, GI bleed, back pain, seizure, CVA, palpatations, mental health, musculoskeletal)? @ -Differential includes viral conjunctivitis, bacterial conjunctivitis, periorbital cellulitis, foreign body, corneal abrasion, this is not an all inclusive list EKG interpreted by me (3pts min.). @ -As above X-rays interpreted by me (1pt min.). @ -None done CT interpreted by me (1pt min.). @ -None done U/S interpreted by me (1pt. min.). @ -None done What testing was considered but not performed or refused? (CT, X-rays, U/S, labs)? Why? @ -None What meds were considered but not given or refused? Why? @ -None Did you discuss the management of the patient with other professionals (professionals i.e. , TREY, POISER, lab, RT, psych nurse, licensed clinical social worker, dictating machine mechanic, teacher, guest relations officer, case assistant)? Give summary @ -No Was smoking cessation discussed for >3mins.? @ -No Was critical care preformed (if so, how long)? @ -No Were there social determinants of health that impacted care today? How? (Homelessness, low income, unemployed, alcoholism, drug addiction, bae sportation, low edu. Level, literacy, decrease access to med. care, [facility], rehab)? @ -No Was there de-escalation of care discussed even if they declined (Discuss DNR or withdrawal of care, Hospice)? DNR status @ -No What co-morbidities impacted this encounter? (DM, HTN, Smoking, COPD, CAD, Cancer, CVA, ARF, Chemo, Hep., AIDS, mental health diagnosis, sleep apnea, morbid obesity)? @ -None Was patient admitted / discharged? Hospital course, mention meds given and route, prescriptions, significant lab abnormalities, going to OR and other pertinent info. @ -28-year-old female presenting with chief complaint of right eye irritation and discharge that started today. On physical examination there is conjunctival injection. Patient will be treated with sulfacetamide eyedrops. Patient is educated on today's findings and treatment plan. Follow-up with PCP. Report back to ER with any new or worsening symptoms. Discussed return parameters and answered all questions. Patient conveyed verbal understanding and agreed to the plan. I discussed this case in detail with my attending Dr. Sky Undiagnosed new problem with uncertain prognosis? @ -No Drug Therapy requiring intensive monitoring for toxicity (Heparin, Nitro, Insulin, Cardizem)? @ -No Were any procedures done? @ -No Diagnosis/symptom? @ -Conjunctivitis Acute, or Chronic, or Acute on Chronic? @ -Acute Uncomplicated (without systemic symptoms) or Complicated (systemic symptoms)? @ -Uncomplicated Side effects of treatment? @ -No Exacerbation, Progression, or Severe Exacerbation? @ -No Poses a threat to life or bodily function? How? (Chest pain, [place], [place], pneumonia, PE, COPD, DKA, ARF, appy, cholecystitis, CVA, Diverticulitis, Homicidal, Suicidal, threat to staff... and all critical care pts) @ -No Disposition Clinical Impression: Conjunctivitis Disposition: HOME SELF-CARE Condition: Good Instructions (If sedation given, give patient instructions): Conjunctivitis (ED) Additional Instructions: apply eye drops every 4 hours for 5 days. Follow-up with PCP. Report back to ER with any new or worsening symptoms. Is patient prescribed a controlled substance at d/c from ED?: No Referrals: None,Stated [Primary Care Provider] - 1-2 days Time of Disposition: 03:41
[2023-07-08 03:42] VITALS: BP 135/89; PULSE 103; RESP 18; TEMP 98.2
[2023-07-08] MEDS ORDERED: SULFACETAMIDE SOD 10% OPHTH DROPS 15 ML BTL RIGHT EYE SCH (04:00)
== END 2023-07-08 04:13 | disposition home or self-care (01) ==
LOC: EC 03:14
DX: H10.9 Unspecified conjunctivitis (principal); J45.909 Unspecified asthma, uncomplicated; Z86.59 Personal history of other mental and behavioral disorders; Z88.7 Allergy status to serum and vaccine; Z91.011 Allergy to milk products
CPT/HCPCS: 99283

== ENCOUNTER 2025-01-20 08:31 | Emergency (ER) | payer OTHER ==
[2025-01-20 08:39] VITALS: BP 134/83; PULSE 80; RESP 18; TEMP 97.8
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
[2025-01-20] MEDS: Acetaminophen-Codeine 300-30mg TAB PO STA (10:09)
== END 2025-01-20 10:12 | disposition home or self-care (01) ==
LOC: EC 08:31
DX: S90.122A Contusion of left lesser toe(s) without damage to nail, initial encounter (principal); Z88.7 Allergy status to serum and vaccine; Z91.011 Allergy to milk products; V89.2XXA Person injured in unspecified motor-vehicle accident, traffic, initial encounter; Y92.410 Unspecified street and highway as the place of occurrence of the external cause
CPT/HCPCS: 99284